=== PATIENT | male | born 1955 | race Caucasian/White ===

== ENCOUNTER 2017-07-18 20:47 | Emergency (ER) | payer MEDICARE, OTHER ==
[~2017-07-18] VITALS: Ht 177.8 cm; Wt 88.5 kg
[2017-07-18] MEDS ORDERED: SODIUM CHLORIDE 0.9% 2,000 ML IV ONE (22:15)
[2017-07-18 22:30] LABS: Basophils # (auto) 0 uL; Basophils % (auto) 0.3 % (0.0-2.0); Eosinophils # (auto) 0 uL; Eosinophils % (auto) 0.2 % (0.0-7.0); Hematocrit 36.1 % (41.0-53.0); Hemoglobin 11.8 g/dL (13.5-17.5); Lymphocytes # (auto) 1.2 uL; Lymphocytes % (auto) 9.5 % (10.0-50.0); Mean Corpuscular Hemoglobin 29.9 pg (28.0-32.0); Mean Corpuscular Hgb Conc. 32.8 g/dL (32.0-36.0); Mean Corpuscular Volume 91.2 fL (80.0-100.0); Monocytes # (auto) 0.5 uL; Monocytes % (auto) 3.8 % (0.0-12.0); Neutrophils # (auto) 10.5 uL; Neutrophils % (auto) 86.2 % (37.0-80.0); Platelet Count (auto) 247 10^3/uL (140-450); Red Blood Cells 3.96 10^6/uL (4.5-5.90); White Blood Cell 12.2 10^3/uL (4.4-10.8)
[2017-07-18 22:43] LABS: INR 1.1 (0.9-1.15)
[2017-07-18 22:49] LABS: Alanine Aminotransferase 23 U/L (16-61); Albumin 3.7 g/dL (3.4-5.0); Alkaline Phosphatase 62 U/L (45-117); Anion Gap 9 (5-15); Aspartate Aminotransferase 23 U/L (15-37); BUN/Creatinine Ratio 31.3; Bilirubin, Total 0.3 mg/dL (0.2-1.0); Blood Urea Nitrogen 46 mg/dL (7-18); Calcium 8.7 mg/dL (8.5-10.1); Carbon Dioxide 23 mmol/L (21-32); Chloride 109 mmol/L (98-107); GFR African American 62 mL/min; GFR Non-African American 52 mL/min; Glucose 227 mg/dL (74-106); Potassium 4.5 mmol/L (3.5-5.1); Sodium 141 mmol/L (136-145); Total Protein 6.8 g/dL (6.4-8.2)
[2017-07-18 23:17] LABS: Urine Bacteria NONE SEEN /hpf (None Seen); Urine Blood Negative /uL (Negative); Urine Specific Gravity 1.019 (1.001-1.035); Urine WBC 1 /hpf (0 - 3)
[2017-07-18 23:33] LABS: Alcohol, Urine < 3.0 mg/dL (0-5); Amphetamine Screen, Urine NEGATIVE (NEGATIVE); Barbiturate Scree,Urine NEGATIVE (NEGATIVE); Benzodiazephine Screen, Urine NEGATIVE (NEGATIVE); Cannabinoid Screen, Urine POSITIVE (NEGATIVE); Cocaine Screen, Urine NEGATIVE (NEGATIVE); Opiate Scree,Urine NEGATIVE (NEGATIVE); Phencyclidine Screen, Urine NEGATIVE (NEGATIVE)
[2017-07-19] MEDS ORDERED: cloNIDine HCL 0.1 MG TAB PO ONE (08:15)
[2017-07-19 09:50] VITALS: BP 107/85
== END 2017-07-19 09:50 | disposition home or self-care (01) ==
LOC: EDBD 20:47 → ER 20:48
DX: E86.0 Dehydration (principal); R42 Dizziness and giddiness; R41.82 Altered mental status, unspecified; E78.5 Hyperlipidemia, unspecified; I10 Essential (primary) hypertension; E11.65 Type 2 diabetes mellitus with hyperglycemia
CPT/HCPCS: 36415; 70450; 71045; 72131; 80053; 80307; 81001; 84484; 85025; 85610; 93005; 96360; 99285; J7030

== ENCOUNTER 2017-10-19 12:13 | Inpatient (IN) | payer MEDICARE, OTHER ==
[~2017-10-19] VITALS: Ht 180.3 cm; Wt 87.6 kg
[2017-10-19 13:21] LABS: Eosinophils # (auto) 0.1 uL; Mean Corpuscular Volume 90.7 fL (80.0-100.0); Monocytes # (auto) 0.5 uL
[2017-10-19 13:23] LABS: Basophils # (auto) 0 uL; Basophils % (auto) 0.7 % (0.0-2.0); Hematocrit 35.2 % (41.0-53.0); Hemoglobin 11.9 g/dL (13.5-17.5); Lymphocytes # (auto) 1.5 uL; Lymphocytes % (auto) 20.1 % (10.0-50.0); Mean Corpuscular Hemoglobin 30.5 pg (28.0-32.0); Mean Corpuscular Hgb Conc. 33.7 g/dL (32.0-36.0); Monocytes % (auto) 6.3 % (0.0-12.0); Neutrophils # (auto) 5.3 uL; Neutrophils % (auto) 71.9 % (37.0-80.0); Platelet Count (auto) 544 10^3/uL (140-450); Red Blood Cells 3.88 10^6/uL (4.5-5.90); Red Cell Distribution Width 14.2 % (11.8-14.3); White Blood Cell 7.3 10^3/uL (4.4-10.8)
[2017-10-19 13:50] LABS: Albumin 3.1 g/dL (3.4-5.0); BUN/Creatinine Ratio 27.6; Bilirubin, Total 0.2 mg/dL (0.2-1.0); Calcium 9.4 mg/dL (8.5-10.1); Potassium 4.6 mmol/L (3.5-5.1); Total Protein 7.9 g/dL (6.4-8.2)
[2017-10-19] MEDS ORDERED: SODIUM CHLORIDE 0.9% 1,000 ML IV ONE (16:18)
[2017-10-19] MEDS ORDERED: VANCOMYCIN 1GM/250ML 250 ML IV ONE (16:30)
[2017-10-19] MEDS ORDERED: NITROGLYCERIN 0.4 MG SL TAB SL PRN (17:00)
[2017-10-19] MEDS ORDERED: PROMETHAZINE HCL 25 MG/ML 1ML IV PRN (17:00)
[2017-10-19] MEDS ORDERED: TEMAZEPAM 15 MG CAP PO PRN (17:00)
[2017-10-19] MEDS ORDERED: DEXTROSE (50%) 50ML SYRG IV PRN (17:00)
[2017-10-19] MEDS ORDERED: VANCOMYCIN PER PHARMACY 0 MG IV SCH (17:00)
[2017-10-19] MEDS ORDERED: LORazepam 0.5 MG TAB PO PRN (17:00)
[2017-10-19] MEDS ORDERED: MORPHINE SULF INJ 2 MG/ML SYRINGE 1ML IV PRN (17:00)
[2017-10-19 17:32] LABS: INR 1.05 (0.9-1.15); Partial Thromboplastin Time 28.6 sec (23.78-33.04); Prothrombin Time 11.2 sec (9.27-12.13)
[2017-10-19] MEDS: SODIUM CHLORIDE 0.9% 1,000 ML IV SCH ×2 (17:48→20:20)
[2017-10-19 20:25] LABS: Basophils # (auto) 0.1 uL; Eosinophils # (auto) 0.1 uL; Neutrophils # (auto) 5.8 uL; White Blood Cell 8.5 10^3/uL (4.4-10.8)
[2017-10-19] MEDS: InsuLIN REG 1unit/0.01ml Soln (100units/ml) SC SCH (20:25)
[2017-10-19] MEDS: ACCU-CHEK COMFORT CURVE STRIP VI SCH (20:25)
[2017-10-19 20:27] LABS: Basophils % (auto) 0.6 % (0.0-2.0); Eosinophils % (auto) 1.3 % (0.0-7.0); Hematocrit 34.6 % (41.0-53.0); Hemoglobin 11.4 g/dL (13.5-17.5); Mean Corpuscular Hemoglobin 31.1 pg (28.0-32.0); Mean Corpuscular Hgb Conc. 32.8 g/dL (32.0-36.0); Mean Corpuscular Volume 94.7 fL (80.0-100.0); Monocytes # (auto) 0.6 uL; Monocytes % (auto) 6.5 % (0.0-12.0); Neutrophils % (auto) 68.6 % (37.0-80.0); Platelet Count (auto) 446 10^3/uL (140-450); Red Blood Cells 3.65 10^6/uL (4.5-5.90); Red Cell Distribution Width 14.2 % (11.8-14.3)
[2017-10-19] MEDS: MORPHINE SULF INJ 2 MG/ML SYRINGE 1ML IV PRN (20:27)
[2017-10-19 22:19] LABS: Urine Bacteria FEW /hpf (None Seen); Urine Blood Negative /uL (Negative); Urine Mucus FEW (None Seen); Urine Specific Gravity 1.023 (1.001-1.035); Urine WBC 16 /hpf (0 - 3)
[2017-10-20] VITALS (7 sets, daily range): BP systolic 116–140; BP diastolic 68–83
[2017-10-20] MEDS: InsuLIN REG 1unit/0.01ml Soln (100units/ml) SC SCH ×6 (01:42→20:05)
[2017-10-20] MEDS: ACCU-CHEK COMFORT CURVE STRIP VI SCH ×6 (01:42→20:05)
[2017-10-20] MEDS: traMADol HCL 50 MG TAB PO PRN (04:22)
[2017-10-20] MEDS ORDERED: CHOLCAP4 PO (05:01)
[2017-10-20] MEDS ORDERED: LOSA100T27 PO (05:01)
[2017-10-20] MEDS ORDERED: FLUO20CA19 PO (05:01)
[2017-10-20] MEDS ORDERED: INSU1INJ19 SC (05:01)
[2017-10-20] MEDS ORDERED: METF-372 PO (05:01)
[2017-10-20] MEDS ORDERED: GABA-339 PO (05:01)
[2017-10-20] MEDS ORDERED: HCTZ25T PO (05:01)
[2017-10-20] MEDS ORDERED: SIMV10TA84 PO (05:01)
[2017-10-20] MEDS ORDERED: ASPI81CH43 PO (05:01)
[2017-10-20 05:17] LABS: Basophils # (auto) 0.1 uL; Eosinophils # (auto) 0.1 uL; Eosinophils % (auto) 1.8 % (0.0-7.0); Hemoglobin 10.6 g/dL (13.5-17.5); Lymphocytes # (auto) 2.1 uL; Mean Corpuscular Hemoglobin 29.3 pg (28.0-32.0); Monocytes # (auto) 0.5 uL; Neutrophils # (auto) 4.5 uL; Red Blood Cells 3.62 10^6/uL (4.5-5.90); White Blood Cell 7.3 10^3/uL (4.4-10.8)
[2017-10-20 05:20] LABS: Basophils % (auto) 0.7 % (0.0-2.0); Hematocrit 32.6 % (41.0-53.0); Lymphocytes % (auto) 28.3 % (10.0-50.0); Mean Corpuscular Hgb Conc. 32.6 g/dL (32.0-36.0); Mean Corpuscular Volume 89.9 fL (80.0-100.0); Monocytes % (auto) 7.4 % (0.0-12.0); Neutrophils % (auto) 61.8 % (37.0-80.0); Platelet Count (auto) 428 10^3/uL (140-450); Red Cell Distribution Width 14.1 % (11.8-14.3)
[2017-10-20 05:34] LABS: Albumin 2.8 g/dL (3.4-5.0); BUN/Creatinine Ratio 28.7; Bilirubin, Total 0.2 mg/dL (0.2-1.0); Calcium 9.1 mg/dL (8.5-10.1); Total Protein 6.8 g/dL (6.4-8.2)
[2017-10-20] MEDS: VANCOMYCIN 1,250 MG in D5W 5% 250 ML IV SCH ×2 (05:51→18:21)
[2017-10-20] MEDS: MORPHINE SULF INJ 2 MG/ML SYRINGE 1ML IV PRN ×3 (06:28→20:05)
[2017-10-20] MEDS: cefTRIAXone 1GM/10ml IVPUSH 10 ML IV SCH (08:57)
[2017-10-20] MEDS: PANTOPRAZOLE 40 MG TAB PO SCH (09:11)
[2017-10-20] MEDS: SODIUM CHLORIDE 0.9% 1,000 ML IV SCH ×2 (13:48→21:31)
[2017-10-20] MEDS: HCTZ 25 MG TAB PO SCH (14:17)
[2017-10-20] MEDS: LOSARTAN POTASSIUM 50 MG TAB PO SCH (14:17)
[2017-10-20] MEDS: GABAPENTIN 300 MG CAP PO SCH ×2 (14:17→21:31)
[2017-10-21] MEDS: SODIUM CHLORIDE 0.9% 1,000 ML IV SCH ×3 (00:30→18:10)
[2017-10-21] MEDS: ACCU-CHEK COMFORT CURVE STRIP VI SCH ×6 (00:32→20:12)
[2017-10-21] MEDS: InsuLIN REG 1unit/0.01ml Soln (100units/ml) SC SCH ×6 (00:32→20:12)
[2017-10-21 05:00] VITALS: BP 120/77
[2017-10-21 05:17] LABS: Basophils # (auto) 0.1 uL; Basophils % (auto) 0.8 % (0.0-2.0); Eosinophils # (auto) 0.2 uL; Eosinophils % (auto) 2.4 % (0.0-7.0); Hematocrit 32.9 % (41.0-53.0); Hemoglobin 11.1 g/dL (13.5-17.5); Lymphocytes # (auto) 2.1 uL; Lymphocytes % (auto) 32.7 % (10.0-50.0); Mean Corpuscular Hemoglobin 30.3 pg (28.0-32.0); Mean Corpuscular Hgb Conc. 33.7 g/dL (32.0-36.0); Mean Corpuscular Volume 89.9 fL (80.0-100.0); Monocytes # (auto) 0.5 uL; Monocytes % (auto) 8.4 % (0.0-12.0); Neutrophils # (auto) 3.5 uL; Neutrophils % (auto) 55.7 % (37.0-80.0); Platelet Count (auto) 401 10^3/uL (140-450); Red Blood Cells 3.66 10^6/uL (4.5-5.90); Red Cell Distribution Width 13.7 % (11.8-14.3); White Blood Cell 6.3 10^3/uL (4.4-10.8)
[2017-10-21 05:36] LABS: Albumin 2.7 g/dL (3.4-5.0); Calcium 8.8 mg/dL (8.5-10.1); Potassium 4.3 mmol/L (3.5-5.1)
[2017-10-21 05:38] LABS: BUN/Creatinine Ratio 22.6
[2017-10-21 05:41] LABS: Bilirubin, Total 0.3 mg/dL (0.2-1.0); Total Protein 6.7 g/dL (6.4-8.2)
[2017-10-21] MEDS: GABAPENTIN 300 MG CAP PO SCH ×3 (06:24→21:31)
[2017-10-21] MEDS: VANCOMYCIN 1,250 MG in D5W 5% 250 ML IV SCH ×2 (06:24→18:09)
[2017-10-21 07:57] VITALS: BP 123/74
[2017-10-21] MEDS: cefTRIAXone 1GM/10ml IVPUSH 10 ML IV SCH (08:51)
[2017-10-21] MEDS: LOSARTAN POTASSIUM 50 MG TAB PO SCH (08:52)
[2017-10-21] MEDS: PANTOPRAZOLE 40 MG TAB PO SCH (08:53)
[2017-10-21] MEDS: HCTZ 25 MG TAB PO SCH (08:53)
[2017-10-21] MEDS: MORPHINE SULF INJ 2 MG/ML SYRINGE 1ML IV PRN ×3 (09:05→20:12)
[2017-10-21 12:38] VITALS: BP 125/76
[2017-10-21] MEDS: MULTIPLE VITAMIN TAB PO SCH (18:09)
[2017-10-21] MEDS: ASCORBIC ACID 500 MG TAB PO SCH (21:31)
[2017-10-21 22:00] VITALS: BP_SYST 127; BP_SYST 164; BP_DIAS 77; BP_DIAS 95
[2017-10-22] MEDS: ACCU-CHEK COMFORT CURVE STRIP VI SCH ×6 (04:00→20:36)
[2017-10-22] MEDS: InsuLIN REG 1unit/0.01ml Soln (100units/ml) SC SCH ×7 (04:00→20:37)
[2017-10-22] MEDS: MORPHINE SULF INJ 2 MG/ML SYRINGE 1ML IV PRN ×3 (04:15→20:59)
[2017-10-22] MEDS: SODIUM CHLORIDE 0.9% 1,000 ML IV SCH ×3 (04:33→20:59)
[2017-10-22 05:15] VITALS: BP 123/70
[2017-10-22 05:50] LABS: Basophils # (auto) 0.1 uL; Basophils % (auto) 0.8 % (0.0-2.0); Eosinophils # (auto) 0.1 uL; Eosinophils % (auto) 1.6 % (0.0-7.0); Hematocrit 31.6 % (41.0-53.0); Hemoglobin 10.6 g/dL (13.5-17.5); Lymphocytes % (auto) 24.6 % (10.0-50.0); Mean Corpuscular Hemoglobin 30.1 pg (28.0-32.0); Mean Corpuscular Hgb Conc. 33.4 g/dL (32.0-36.0); Mean Corpuscular Volume 89.9 fL (80.0-100.0); Monocytes # (auto) 0.7 uL; Monocytes % (auto) 8.4 % (0.0-12.0); Neutrophils # (auto) 5.3 uL; Neutrophils % (auto) 64.6 % (37.0-80.0); Platelet Count (auto) 399 10^3/uL (140-450); Red Blood Cells 3.51 10^6/uL (4.5-5.90); Red Cell Distribution Width 13.8 % (11.8-14.3); White Blood Cell 8.2 10^3/uL (4.4-10.8)
[2017-10-22] MEDS: GABAPENTIN 300 MG CAP PO SCH ×3 (06:02→21:58)
[2017-10-22] MEDS: VANCOMYCIN 1,250 MG in D5W 5% 250 ML IV SCH ×2 (06:02→18:48)
[2017-10-22 06:06] LABS: Calcium 8.4 mg/dL (8.5-10.1); Potassium 4.3 mmol/L (3.5-5.1)
[2017-10-22 09:00] VITALS: BP 113/50
[2017-10-22] MEDS: cefTRIAXone 1GM/10ml IVPUSH 10 ML IV SCH (09:17)
[2017-10-22] MEDS: PANTOPRAZOLE 40 MG TAB PO SCH (09:18)
[2017-10-22] MEDS: HCTZ 25 MG TAB PO SCH (09:18)
[2017-10-22] MEDS: LOSARTAN POTASSIUM 50 MG TAB PO SCH (10:00)
[2017-10-22] MEDS: MULTIPLE VITAMIN TAB PO SCH (12:20)
[2017-10-22] MEDS: ASCORBIC ACID 500 MG TAB PO SCH ×2 (12:20→21:58)
[2017-10-22 13:00] VITALS: BP 116/66
[2017-10-22 17:00] VITALS: BP 110/64
[2017-10-22 22:00] VITALS: BP 146/73
[2017-10-23] MEDS: ACCU-CHEK COMFORT CURVE STRIP VI SCH ×6 (00:13→21:01)
[2017-10-23] MEDS: SODIUM CHLORIDE 0.9% 1,000 ML IV SCH ×3 (00:13→21:01)
[2017-10-23] MEDS: InsuLIN REG 1unit/0.01ml Soln (100units/ml) SC SCH ×6 (04:00→21:02)
[2017-10-23 05:00] VITALS: BP 113/71
[2017-10-23] MEDS: MORPHINE SULF INJ 2 MG/ML SYRINGE 1ML IV PRN ×3 (05:05→21:00)
[2017-10-23] MEDS: GABAPENTIN 300 MG CAP PO SCH ×3 (06:00→21:01)
[2017-10-23 06:05] LABS: Neutrophils # (auto) 4.4 uL
[2017-10-23 06:08] LABS: INR 1.1 (0.9-1.15); Partial Thromboplastin Time 28.7 sec (23.78-33.04); Prothrombin Time 11.7 sec (9.27-12.13)
[2017-10-23 06:11] LABS: Basophils # (auto) 0 uL; Basophils % (auto) 0.6 % (0.0-2.0); Eosinophils # (auto) 0.2 uL; Eosinophils % (auto) 2.3 % (0.0-7.0); Hematocrit 36.5 % (41.0-53.0); Hemoglobin 12.3 g/dL (13.5-17.5); Lymphocytes # (auto) 2.3 uL; Lymphocytes % (auto) 30.3 % (10.0-50.0); Mean Corpuscular Hemoglobin 30.4 pg (28.0-32.0); Mean Corpuscular Hgb Conc. 33.6 g/dL (32.0-36.0); Mean Corpuscular Volume 90.4 fL (80.0-100.0); Monocytes # (auto) 0.6 uL; Monocytes % (auto) 7.5 % (0.0-12.0); Neutrophils % (auto) 59.3 % (37.0-80.0); Nucleated Red Blood Cells % 0.1 %; Platelet Count (auto) 488 10^3/uL (140-450); Red Blood Cells 4.04 10^6/uL (4.5-5.90); White Blood Cell 7.4 10^3/uL (4.4-10.8)
[2017-10-23] MEDS: VANCOMYCIN 1,250 MG in D5W 5% 250 ML IV SCH ×2 (06:16→17:55)
[2017-10-23 06:18] LABS: BUN/Creatinine Ratio 20.7; Calcium 8.9 mg/dL (8.5-10.1); Potassium 3.9 mmol/L (3.5-5.1)
[2017-10-23 08:51] VITALS: BP 125/71
[2017-10-23] MEDS ORDERED: LIDOCAINE 2% (LOCAL ANESTH.) PF 5ml SDV ONE ×2 (09:01→09:26)
[2017-10-23] MEDS ORDERED: IODIXANOL 320MG/ML 100ML BTL IV ONE (09:02)
[2017-10-23] MEDS ORDERED: MIDAZOLAM HCL 1MG/1ML-2 ML VIAL ONE (09:07)
[2017-10-23] MEDS ORDERED: SODIUM CHL 0.9% 50 ML ONE (09:07)
[2017-10-23] MEDS ORDERED: ANGIOMAX 250 MG VIAL IV ONE (09:07)
[2017-10-23] MEDS ORDERED: fentaNYL CITRATE 100 MCG/2 ML VL ONE (09:07)
[2017-10-23] MEDS ORDERED: VERAPAMIL 2.5MG/ML INJ 2ML VIAL IV ONE (09:13)
[2017-10-23 13:00] VITALS: BP 125/73
[2017-10-23] MEDS ORDERED: LIDOCAINE 1% (LOCAL ANESTH.) PF 5ml SDV ID ONE (14:15)
[2017-10-23] MEDS: MULTIPLE VITAMIN TAB PO SCH (14:27)
[2017-10-23] MEDS: cefTRIAXone 1GM/10ml IVPUSH 10 ML IV SCH (14:27)
[2017-10-23] MEDS: PANTOPRAZOLE 40 MG TAB PO SCH (14:27)
[2017-10-23] MEDS: ASCORBIC ACID 500 MG TAB PO SCH ×2 (14:27→21:01)
[2017-10-23] MEDS: HCTZ 25 MG TAB PO SCH (14:29)
[2017-10-23] MEDS: LOSARTAN POTASSIUM 50 MG TAB PO SCH (14:30)
[2017-10-23 17:00] VITALS: BP 99/52
[2017-10-23] MEDS: traMADol HCL 50 MG TAB PO PRN (17:55)
[2017-10-23] MEDS: SODIUM CHLOR 0.9% PF (SALINE LOCK) 10ML VIAL/SYR IV SCH (21:01)
[2017-10-23] MEDS: PRAVASTATIN SODIUM 20 MG TAB PO SCH (21:02)
[2017-10-23 22:00] VITALS: BP 137/74
[2017-10-24] MEDS: ACCU-CHEK COMFORT CURVE STRIP VI SCH ×6 (01:00→20:00)
[2017-10-24] MEDS: InsuLIN REG 1unit/0.01ml Soln (100units/ml) SC SCH ×6 (01:00→21:32)
[2017-10-24 05:00] VITALS: BP 120/76
[2017-10-24] MEDS: GABAPENTIN 300 MG CAP PO SCH ×3 (05:44→22:01)
[2017-10-24] MEDS: SODIUM CHLORIDE 0.9% 1,000 ML IV SCH ×2 (05:44→18:21)
[2017-10-24] MEDS: VANCOMYCIN 1,250 MG in D5W 5% 250 ML IV SCH ×2 (05:44→18:21)
[2017-10-24] MEDS: traMADol HCL 50 MG TAB PO PRN (05:45)
[2017-10-24 07:55] LABS: Basophils # (auto) 0.1 uL; Basophils % (auto) 0.8 % (0.0-2.0); Eosinophils # (auto) 0.2 uL; Eosinophils % (auto) 2.2 % (0.0-7.0); Hematocrit 33.6 % (41.0-53.0); Hemoglobin 11.1 g/dL (13.5-17.5); Lymphocytes % (auto) 26.3 % (10.0-50.0); Mean Corpuscular Hemoglobin 29.6 pg (28.0-32.0); Mean Corpuscular Volume 89.8 fL (80.0-100.0); Monocytes # (auto) 0.6 uL; Monocytes % (auto) 7.9 % (0.0-12.0); Neutrophils # (auto) 4.7 uL; Neutrophils % (auto) 62.8 % (37.0-80.0); Nucleated Red Blood Cells % 0.1 %; Platelet Count (auto) 389 10^3/uL (140-450); Red Blood Cells 3.74 10^6/uL (4.5-5.90); Red Cell Distribution Width 13.8 % (11.8-14.3); White Blood Cell 7.5 10^3/uL (4.4-10.8)
[2017-10-24 08:00] VITALS: BP 137/75
[2017-10-24 08:02] LABS: BUN/Creatinine Ratio 17.9; Calcium 8.8 mg/dL (8.5-10.1); Potassium 4.1 mmol/L (3.5-5.1)
[2017-10-24] MEDS: ASCORBIC ACID 500 MG TAB PO SCH ×2 (10:00→22:01)
[2017-10-24] MEDS: MULTIPLE VITAMIN TAB PO SCH (10:00)
[2017-10-24] MEDS: PANTOPRAZOLE 40 MG TAB PO SCH (10:00)
[2017-10-24] MEDS: HCTZ 25 MG TAB PO SCH (10:22)
[2017-10-24] MEDS: LOSARTAN POTASSIUM 50 MG TAB PO SCH (10:23)
[2017-10-24 12:00] VITALS: BP 118/74
[2017-10-24] MEDS ORDERED: IODIXANOL 320MG/ML 100ML BTL IV ONE (13:14)
[2017-10-24] MEDS ORDERED: LIDOCAINE 2% (LOCAL ANESTH.) PF 5ml SDV ONE (13:14)
[2017-10-24] MEDS ORDERED: fentaNYL CITRATE 100 MCG/2 ML VL ONE (14:29)
[2017-10-24] MEDS ORDERED: ANGIOMAX 250 MG VIAL IV ONE (14:29)
[2017-10-24] MEDS ORDERED: MIDAZOLAM HCL 1MG/1ML-2 ML VIAL ONE (14:30)
[2017-10-24] MEDS ORDERED: SODIUM CHL 0.9% 50 ML ONE (14:30)
[2017-10-24 17:00] VITALS: BP 140/87
[2017-10-24] MEDS: cefTRIAXone 1GM/10ml IVPUSH 10 ML IV SCH (18:19)
[2017-10-24] MEDS: SODIUM CHLOR 0.9% PF (SALINE LOCK) 10ML VIAL/SYR IV SCH ×2 (18:20→21:33)
[2017-10-24] MEDS: ACETAMINOPHEN 500 MG TAB PO PRN (18:22)
[2017-10-24 21:59] VITALS: BP 122/60
[2017-10-24] MEDS: MORPHINE SULF INJ 2 MG/ML SYRINGE 1ML IV PRN (22:00)
[2017-10-24] MEDS: PRAVASTATIN SODIUM 20 MG TAB PO SCH (22:01)
[2017-10-25] MEDS: SODIUM CHLORIDE 0.9% 1,000 ML IV SCH ×2 (03:52→13:04)
[2017-10-25] MEDS: ACCU-CHEK COMFORT CURVE STRIP VI SCH ×5 (04:29→16:00)
[2017-10-25] MEDS: InsuLIN REG 1unit/0.01ml Soln (100units/ml) SC SCH ×5 (04:29→16:00)
[2017-10-25 05:30] VITALS: BP 112/74
[2017-10-25 05:39] LABS: Basophils # (auto) 0 uL; Basophils % (auto) 0.6 % (0.0-2.0); Eosinophils # (auto) 0.2 uL; Eosinophils % (auto) 2.5 % (0.0-7.0); Hematocrit 31.8 % (41.0-53.0); Hemoglobin 10.7 g/dL (13.5-17.5); Lymphocytes # (auto) 1.9 uL; Lymphocytes % (auto) 28.2 % (10.0-50.0); Mean Corpuscular Hemoglobin 30.4 pg (28.0-32.0); Mean Corpuscular Hgb Conc. 33.7 g/dL (32.0-36.0); Monocytes # (auto) 0.5 uL; Monocytes % (auto) 7.9 % (0.0-12.0); Neutrophils # (auto) 4.1 uL; Neutrophils % (auto) 60.8 % (37.0-80.0); Platelet Count (auto) 363 10^3/uL (140-450); Red Blood Cells 3.53 10^6/uL (4.5-5.90); Red Cell Distribution Width 13.9 % (11.8-14.3); White Blood Cell 6.7 10^3/uL (4.4-10.8)
[2017-10-25] MEDS: VANCOMYCIN 1,250 MG in D5W 5% 250 ML IV SCH ×2 (05:47→18:00)
[2017-10-25] MEDS: GABAPENTIN 300 MG CAP PO SCH ×2 (05:48→14:00)
[2017-10-25 05:58] LABS: BUN/Creatinine Ratio 24.4; Calcium 8.4 mg/dL (8.5-10.1)
[2017-10-25 08:39] VITALS: BP 142/76
[2017-10-25] MEDS: ACETAMINOPHEN 500 MG TAB PO PRN (08:49)
[2017-10-25] MEDS: ASCORBIC ACID 500 MG TAB PO SCH (10:09)
[2017-10-25] MEDS: HCTZ 25 MG TAB PO SCH (10:09)
[2017-10-25] MEDS: PANTOPRAZOLE 40 MG TAB PO SCH (10:09)
[2017-10-25] MEDS: cefTRIAXone 1GM/10ml IVPUSH 10 ML IV SCH (10:09)
[2017-10-25] MEDS: MULTIPLE VITAMIN TAB PO SCH (10:09)
[2017-10-25] MEDS: LOSARTAN POTASSIUM 50 MG TAB PO SCH (10:10)
[2017-10-25] MEDS: SODIUM CHLOR 0.9% PF (SALINE LOCK) 10ML VIAL/SYR IV SCH (10:10)
[2017-10-25] MEDS ORDERED: LEVOFLOXACIN 500MG 100 ML IV ONE (12:45)
[2017-10-25 13:00] VITALS: BP 142/76
[2017-10-25 16:39] VITALS: BP 150/88
[2017-10-25 17:34] VITALS: BP 142/76
[2017-10-25 18:00] VITALS: BP 120/69
== END 2017-10-25 18:38 | disposition home health service (06) | DRG 300 ==
LOC: ER 12:19 → TELE 12:20 → TELE-WESTW 10-20 03:21
PROVIDERS: ADMIT Internal Medicine; ATTEND Family Medicine
PROC: B41G1ZZ Fluoroscopy of Left Lower Extremity Arteries using Low Osmolar Contrast (ICD-10-PCS; principal; 2017-10-23)
PROC: B41F1ZZ Fluoroscopy of Right Lower Extremity Arteries using Low Osmolar Contrast (ICD-10-PCS; 2017-10-23)
PROC: 04JY3ZZ Inspection of Lower Artery, Percutaneous Approach (ICD-10-PCS; 2017-10-23)
PROC: 02HV33Z Insertion of Infusion Device into Superior Vena Cava, Percutaneous Approach (ICD-10-PCS; 2017-10-23)
PROC: 04JY3ZZ Inspection of Lower Artery, Percutaneous Approach (ICD-10-PCS; 2017-10-24)
DX: I70.201 Unspecified atherosclerosis of native arteries of extremities, right leg (principal); E44.1 Mild protein-calorie malnutrition; N39.0 Urinary tract infection, site not specified; M86.8X7 Other osteomyelitis, ankle and foot; E11.621 Type 2 diabetes mellitus with foot ulcer; I10 Essential (primary) hypertension; L08.9 Local infection of the skin and subcutaneous tissue, unspecified; E11.69 Type 2 diabetes mellitus with other specified complication; E78.00 Pure hypercholesterolemia, unspecified; D64.9 Anemia, unspecified; D47.3 Essential (hemorrhagic) thrombocythemia; E11.65 Type 2 diabetes mellitus with hyperglycemia; E66.3 Overweight; E78.5 Hyperlipidemia, unspecified; M83.9 Adult osteomalacia, unspecified; Z79.4 Long term (current) use of insulin; Z80.8 Family history of malignant neoplasm of other organs or systems; Z68.26 Body mass index [BMI] 26.0-26.9, adult; Z91.19 Patient's noncompliance with other medical treatment and regimen
CPT/HCPCS: 36140; 36415; 71045; 71046; 73630; 75716; 80048; 80053; 80202; 81001; 82962; 83036; 83735; 83880; 84443; 85025; 85610; 85652; 85730; 87040; 87077; 87081; 87186; 87205; 93005; 93306; 93926; 94761; 96365; 96375; 99152; 99153; C1769; J1815; J1956; J2250; J7060; Q9967

== ENCOUNTER → 2017-11-10 | Outpatient (CLI) | payer MEDICARE, OTHER ==
[~2017-11-10] MED LIST: ASPI81CH43 PO; CHOLCAP4 PO; CLOP75TA41 PO; FLUO20CA19 PO; GABA-339 PO; HCTZ25T PO; HYDR-531 PO; INSU1INJ19 SC; IOHEXOL 350 MG/ML 100ML IJ ONE; LOSA100T27 PO; METF-372 PO; SIMV10TA84 PO; SODIUM CHLORIDE 0.9% 250 ML IV SCH
[2017-11-10 08:49] VITALS: BP 137/79
[2017-11-10 09:48] VITALS: BP 133/73
== END | disposition home or self-care (01) ==
LOC: Rad HDHVI 08:38
PROVIDERS: ATTEND Internal Medicine Cardiovascular Disease
DX: I73.9 Peripheral vascular disease, unspecified (principal); S81.801A Unspecified open wound, right lower leg, initial encounter; I10 Essential (primary) hypertension; E11.65 Type 2 diabetes mellitus with hyperglycemia; E78.5 Hyperlipidemia, unspecified; M86.9 Osteomyelitis, unspecified; E78.00 Pure hypercholesterolemia, unspecified; Z79.4 Long term (current) use of insulin; Z79.82 Long term (current) use of aspirin; Z79.1 Long term (current) use of non-steroidal anti-inflammatories (NSAID); Z79.84 Long term (current) use of oral hypoglycemic drugs; Z68.26 Body mass index [BMI] 26.0-26.9, adult; X58.XXXA Exposure to other specified factors, initial encounter; Y93.89 Activity, other specified; Y92.89 Other specified places as the place of occurrence of the external cause
CPT/HCPCS: 75635; 82565; 82962; 96360; G0463; J1642; J7050; Q9967

== ENCOUNTER → 2018-03-23 | Outpatient (CLI) | payer MEDICARE, MEDICAID ==
[~2018-03-23] MED LIST changes: -IOHEXOL 350 MG/ML 100ML IJ ONE; +LOSA-49 PO; -LOSA100T27 PO; +SIMV-8 PO; -SODIUM CHLORIDE 0.9% 250 ML IV SCH
[2018-03-23 10:25] VITALS: BP 165/92
[2018-03-23 11:08] VITALS: BP 152/84
[2018-03-23 12:22] LABS: Basophils # (auto) 0.1 uL; Basophils % (auto) 0.8 % (0.0-2.0); Eosinophils # (auto) 0.2 uL; Eosinophils % (auto) 2.7 % (0.0-7.0); Hemoglobin 13.2 g/dL (13.5-17.5); Lymphocytes # (auto) 2.2 uL; Lymphocytes % (auto) 27.1 % (10.0-50.0); Mean Corpuscular Hemoglobin 29.6 pg (28.0-32.0); Mean Corpuscular Hgb Conc. 33.1 g/dL (32.0-36.0); Mean Corpuscular Volume 89.4 fL (80.0-100.0); Monocytes # (auto) 0.6 uL; Neutrophils # (auto) 5.1 uL; Neutrophils % (auto) 62.4 % (37.0-80.0); Nucleated Red Blood Cells % 0.2 %; Platelet Count (auto) 314 10^3/uL (140-450); Red Blood Cells 4.48 10^6/uL (4.5-5.90); Red Cell Distribution Width 14.1 % (11.8-14.3); White Blood Cell 8.2 10^3/uL (4.4-10.8)
[2018-03-23 12:36] LABS: Potassium 4.6 mmol/L (3.5-5.1)
[2018-03-23 12:37] LABS: Partial Thromboplastin Time 23.4 sec (23.78-33.04); Prothrombin Time 10.7 sec (9.27-12.13)
[2018-03-23 12:39] LABS: BUN/Creatinine Ratio 27.8; Calcium 9.5 mg/dL (8.5-10.1)
== END | disposition home or self-care (01) ==
LOC: Rad HDHVI 10:16
PROVIDERS: ATTEND Internal Medicine Cardiovascular Disease
DX: Z01.818 Encounter for other preprocedural examination (principal); I70.0 Atherosclerosis of aorta; D64.9 Anemia, unspecified; R79.1 Abnormal coagulation profile; I10 Essential (primary) hypertension
CPT/HCPCS: 36415; 71046; 80048; 85025; 85610; 85730; 93005; G0463

== ENCOUNTER → 2018-03-24 | Outpatient (CLI) | payer MEDICARE, MEDICAID ==
[~2018-03-24] VITALS: Ht 180.3 cm; Wt 92.5 kg
[~2018-03-24] MED LIST changes: +ADENOSINE 78 MG in GIVE UN-DILUTED 0 ML IV ONE; +ADENOSINE 90 MG/30 ML INJ IV ONE; -CHOLCAP4 PO; -HYDR-531 PO; -INSU1INJ19 SC; -SIMV10TA84 PO
== END | disposition home or self-care (01) ==
LOC: Rad HDHVI 14:21
PROVIDERS: ATTEND Internal Medicine Cardiovascular Disease
DX: I73.9 Peripheral vascular disease, unspecified (principal); E78.00 Pure hypercholesterolemia, unspecified; E11.9 Type 2 diabetes mellitus without complications; R06.01 Orthopnea; R07.89 Other chest pain
CPT/HCPCS: 78452; 93005; 96374; 96375; A9500; J0153

== ENCOUNTER 2018-03-26 09:04 | Day surgery (SDC) | payer MEDICARE, MEDICAID ==
[~2018-03-26] VITALS: Ht 180.3 cm; Wt 93.0 kg
[~2018-03-26 09:04] MED LIST changes: -ADENOSINE 78 MG in GIVE UN-DILUTED 0 ML IV ONE; -ADENOSINE 90 MG/30 ML INJ IV ONE
[2018-03-26] MEDS ORDERED: IOHEXOL 350 MG/ML 100ML IJ ONE (10:26)
[2018-03-26] MEDS ORDERED: LIDOCAINE 2%HCL (LOCAL ANESTH.) INJ 20ML MDV ONE (10:26)
[2018-03-26] MEDS ORDERED: fentaNYL CITRATE 100 MCG/2 ML VL ONE (10:35)
[2018-03-26] MEDS ORDERED: ANGIOMAX 250 MG VIAL IV ONE (10:35)
[2018-03-26] MEDS ORDERED: MIDAZOLAM HCL 1MG/1ML-2 ML VIAL ONE (10:36)
[2018-03-26] MEDS ORDERED: SODIUM CHL 0.9% 50 ML ONE (10:36)
== END 2018-03-26 14:20 | disposition home or self-care (01) ==
LOC: CATH 09:04
PROVIDERS: ATTEND Internal Medicine Cardiovascular Disease
DX: I70.201 Unspecified atherosclerosis of native arteries of extremities, right leg (principal); I10 Essential (primary) hypertension; E78.5 Hyperlipidemia, unspecified; E11.621 Type 2 diabetes mellitus with foot ulcer; I99.8 Other disorder of circulatory system; E11.51 Type 2 diabetes mellitus with diabetic peripheral angiopathy without gangrene; Q25.0 Patent ductus arteriosus; Z79.899 Other long term (current) drug therapy; Z79.82 Long term (current) use of aspirin; Z11.9 Encounter for screening for infectious and parasitic diseases, unspecified
CPT/HCPCS: 37224; 75716; 99152; 99153; A6257; C1760; C1769; C1887; C1894; J0583; J1644; J2250; J3010; J7030; Q9967

== ENCOUNTER 2018-07-19 10:05 | Inpatient (IN) | payer MEDICARE, OTHER, MEDICAID | END 2018-07-24 19:10 | disposition home health service (06) | LOC: WEST WING 07-22 21:56 → ER 10:05 → WEST WING 07-22 22:01 → TELE 14:04 → WEST WING 17:31 | PROC: 0Y6R0Z0 Detachment at Right 2nd Toe, Complete, Open Approach (ICD-10-PCS; principal; 2018-07-22 11:10) | DX: M86.9 Osteomyelitis, unspecified (principal); N17.9 Acute kidney failure, unspecified; L97.919 Non-pressure chronic ulcer of unspecified part of right lower leg with unspecified severity; L03.811 Cellulitis of head [any part, except face]; N18.3 Chronic kidney disease, stage 3 (moderate); I12.9 Hypertensive chronic kidney disease with stage 1 through stage 4 chronic kidney disease, or unspecified chronic kidney disease; E11.21 Type 2 diabetes mellitus with diabetic nephropathy; E11.51 Type 2 diabetes mellitus with diabetic peripheral angiopathy without gangrene; E11.65 Type 2 diabetes mellitus with hyperglycemia; E78.5 Hyperlipidemia, unspecified; E11.40 Type 2 diabetes mellitus with diabetic neuropathy, unspecified; E78.00 Pure hypercholesterolemia, unspecified; D64.9 Anemia, unspecified ==

== ENCOUNTER 2018-12-30 08:25 | Emergency (ER) | payer MEDICAID, MEDICARE, OTHER ==
[~2018-12-30] VITALS: Ht 177.8 cm; Wt 90.7 kg
[~2018-12-30 08:25] MED LIST changes: +LOSA-39 PO; -LOSA-49 PO
[2018-12-30 09:09] LABS: Albumin 3.8 g/dL (3.4-5.0); Calcium 9.3 mg/dL (8.5-10.1); Potassium 3.8 mmol/L (3.5-5.1)
[2018-12-30 09:11] LABS: BUN/Creatinine Ratio 14.7
[2018-12-30 09:12] LABS: Basophils # (auto) 0 uL; Basophils % (auto) 0.6 % (0.0-2.0); Eosinophils # (auto) 0.1 uL; Eosinophils % (auto) 1.7 % (0.0-7.0); Hemoglobin 14.5 g/dL (13.5-17.5); Lymphocytes # (auto) 1.8 uL; Lymphocytes % (auto) 26.7 % (10.0-50.0); Mean Corpuscular Hemoglobin 30.3 pg (28.0-32.0); Mean Corpuscular Hgb Conc. 33.8 g/dL (32.0-36.0); Mean Corpuscular Volume 89.5 fL (80.0-100.0); Monocytes # (auto) 0.5 uL; Neutrophils # (auto) 4.4 uL; Nucleated Red Blood Cells % 0.1 %; Platelet Count (auto) 348 10^3/uL (140-450); Red Blood Cells 4.81 10^6/uL (4.5-5.90); Red Cell Distribution Width 14.4 % (11.8-14.3); White Blood Cell 6.9 10^3/uL (4.4-10.8)
[2018-12-30 09:13] LABS: Bilirubin, Total 0.5 mg/dL (0.2-1.0); Total Protein 7.2 g/dL (6.4-8.2)
[2018-12-30 09:47] LABS: Urine Bacteria None Seen /hpf (None Seen)
[2018-12-30 10:27] LABS: Urine WBC 0-2 /hpf (0 - 3)
[2018-12-30 10:29] LABS: Urine Blood Negative /uL (Negative)
[2018-12-30 13:24] VITALS: BP 156/88
== END 2018-12-30 13:25 | disposition home or self-care (01) ==
LOC: EDBD 08:25 → ER 08:27
DX: H93.13 Tinnitus, bilateral (principal); E11.65 Type 2 diabetes mellitus with hyperglycemia; I10 Essential (primary) hypertension; R51 Headache; R42 Dizziness and giddiness; E78.5 Hyperlipidemia, unspecified
CPT/HCPCS: 36415; 70450; 71045; 80053; 81001; 85025; 93005

== ENCOUNTER 2020-01-24 13:07 | Inpatient (IN) | payer MEDICARE ==
[~2020-01-24] VITALS: Ht 180.3 cm; Wt 98.8 kg
[2020-01-24] MEDS ORDERED: SODIUM CHLORIDE 0.9% 500 ML IV ONE (13:30)
[2020-01-24 13:57] LABS: Basophils # (auto) 0 10 ^3/uL (0-0.2); Basophils % (auto) 0.5 % (0.0-2.0); Eosinophils # (auto) 0.2 10 ^3/uL (0-0.8); Eosinophils % (auto) 1.9 % (0.0-7.0); Hematocrit 42.4 % (41.0-53.0); Hemoglobin 14.1 g/dL (13.5-17.5); Lymphocytes # (auto) 1.6 10 ^3/uL (0.4-5.4); Mean Corpuscular Hemoglobin 30.6 pg (28.0-32.0); Mean Corpuscular Hgb Conc. 33.2 g/dL (32.0-36.0); Mean Corpuscular Volume 92.1 fL (80.0-100.0); Monocytes # (auto) 0.6 10 ^3/uL (0-1.3); Monocytes % (auto) 7.7 % (0.0-12.0); Neutrophils # (auto) 5.8 10 ^3/uL (1.6-8.6); Neutrophils % (auto) 70.9 % (37.0-80.0); Nucleated Red Blood Cells % 0.1 %; Platelet Count (auto) 361 10^3/uL (140-450); Red Cell Distribution Width 13.2 % (11.8-14.3); White Blood Cell 8.2 10^3/uL (4.4-10.8)
[2020-01-24 14:13] LABS: Albumin 3.6 g/dL (3.4-5.0); Calcium 9.5 mg/dL (8.5-10.1); Potassium 4.3 mmol/L (3.5-5.1)
[2020-01-24 14:17] LABS: BUN/Creatinine Ratio 21.6; Bilirubin, Total 0.4 mg/dL (0.2-1.0)
[2020-01-24] MEDS ORDERED: MORPHINE SULF INJ 2 MG/ML SYRINGE 1ML IV PRN ×2 (15:45→17:45)
[2020-01-24] MEDS ORDERED: NITROGLYCERIN 0.4 MG SL TAB SL PRN ×2 (15:45→17:45)
[2020-01-24] MEDS ORDERED: SIMV10TA84 PO (16:29)
[2020-01-24] MEDS ORDERED: BACL10TA PO (16:29)
[2020-01-24] MEDS ORDERED: FERR-20 PO (16:29)
[2020-01-24] MEDS ORDERED: CHOL20007 PO (16:29)
[2020-01-24] MEDS ORDERED: INSU1INJ19 SC (16:40)
[2020-01-24] MEDS ORDERED: BACLOFEN 10 MG TAB PO PRN (17:45)
[2020-01-24] MEDS ORDERED: DOCUSATE SOD 100 MG CAP PO PRN (17:45)
[2020-01-24] MEDS ORDERED: DEXTROSE (50%) 50ML SYRG IV PRN (17:45)
[2020-01-24] MEDS ORDERED: ONDANSETRON HCL 4 MG/2 ML VIAL IV PRN (17:45)
[2020-01-24] MEDS ORDERED: LORazepam 0.5 MG TAB PO PRN ×2 (17:45→18:45)
[2020-01-24] MEDS ORDERED: cefTRIAXone 1GM/50ML D5W 50 ML IV ONE (18:00)
[2020-01-24] MEDS: MORPHINE SULF INJ 2 MG/ML SYRINGE 1ML IV PRN (18:24)
[2020-01-24] MEDS: FERROUS SULFATE 325 MG TAB PO SCH (18:24)
[2020-01-24] MEDS: SODIUM CHLORIDE 0.9% 1,000 ML IV SCH (18:27)
[2020-01-24] MEDS ORDERED: CLINDAMYCIN 600MG IV 50 ML IV ONE (20:00)
[2020-01-24 20:26] LABS: Cholesterol 238 mg/dL (< 200); HDL Cholesterol 59 mg/dL (40-59); LDL Cholesterol 142 mg/dL (< 100); Triglycerides 339 mg/dL (< 150)
[2020-01-24 21:56] VITALS: BP 159/83
[2020-01-24] MEDS: GABAPENTIN 300 MG CAP PO SCH (22:01)
[2020-01-24] MEDS: ATORVASTATIN 20 MG TAB PO SCH (22:01)
[2020-01-24] MEDS: ACCU-CHEK COMFORT CURVE STRIP VI SCH (22:01)
[2020-01-24] MEDS: InsuLIN REG 1unit/0.01ml Soln (100units/ml) SC SCH (22:02)
[2020-01-25] VITALS (8 sets, daily range): BP systolic 142–159; BP diastolic 83–92
[2020-01-25] MEDS: HYDROcodone-ACET 5/325MG TAB PO PRN (05:06)
[2020-01-25] MEDS: GABAPENTIN 300 MG CAP PO SCH ×3 (06:21→21:37)
[2020-01-25] MEDS: CLINDAMYCIN 600MG IV 50 ML IV SCH ×3 (06:21→21:36)
[2020-01-25] MEDS: ACCU-CHEK COMFORT CURVE STRIP VI SCH ×4 (06:22→21:37)
[2020-01-25] MEDS: InsuLIN REG 1unit/0.01ml Soln (100units/ml) SC SCH ×4 (06:26→21:37)
[2020-01-25] MEDS: ACETAMINOPHEN 325 MG TAB PO PRN ×2 (08:57→16:11)
[2020-01-25] MEDS: FERROUS SULFATE 325 MG TAB PO SCH ×2 (08:57→17:53)
[2020-01-25] MEDS: cefTRIAXone 1GM/50ML D5W 50 ML IV SCH (08:57)
[2020-01-25] MEDS: ASPirin 81 mg TAB PO SCH (09:14)
[2020-01-25] MEDS: FLUoxetine HCL 20 MG CAP PO SCH (09:14)
[2020-01-25] MEDS: CHOLECALCIFEROL (VITD3) 2,000 UNIT CAP PO SCH (09:15)
[2020-01-25] MEDS: LOSARTAN POTASSIUM 50 MG TAB PO SCH (09:15)
[2020-01-25] MEDS: SODIUM CHLORIDE 0.9% 1,000 ML IV SCH (10:53)
[2020-01-25 19:00] LABS: Urine WBC None Seen /hpf (0 - 3)
[2020-01-25 19:07] LABS: Urine Bacteria NONE SEEN /hpf (None Seen); Urine Blood Negative /uL (Negative); Urine Specific Gravity 1.021 (1.001-1.035)
[2020-01-25 19:29] LABS: Alcohol, Urine < 3.0 mg/dL (0-10); Amphetamine Screen, Urine NEGATIVE (NEGATIVE); Barbiturate Scree,Urine NEGATIVE (NEGATIVE); Benzodiazephine Screen, Urine NEGATIVE (NEGATIVE); Cannabinoid Screen, Urine NEGATIVE (NEGATIVE); Cocaine Screen, Urine NEGATIVE (NEGATIVE); Opiate Scree,Urine NEGATIVE (NEGATIVE); Phencyclidine Screen, Urine NEGATIVE (NEGATIVE)
[2020-01-25] MEDS: ATORVASTATIN 20 MG TAB PO SCH (21:37)
[2020-01-25] MEDS: MORPHINE SULF INJ 2 MG/ML SYRINGE 1ML IV PRN (21:38)
[2020-01-26] VITALS (7 sets, daily range): BP systolic 124–152; BP diastolic 75–88
[2020-01-26] MEDS: SODIUM CHLORIDE 0.9% 1,000 ML IV SCH (03:05)
[2020-01-26] MEDS: ACETAMINOPHEN 325 MG TAB PO PRN (03:55)
[2020-01-26] MEDS: GABAPENTIN 300 MG CAP PO SCH ×3 (05:20→21:35)
[2020-01-26] MEDS: CLINDAMYCIN 600MG IV 50 ML IV SCH ×3 (05:20→21:36)
[2020-01-26] MEDS: ACCU-CHEK COMFORT CURVE STRIP VI SCH ×4 (06:06→21:41)
[2020-01-26] MEDS: InsuLIN REG 1unit/0.01ml Soln (100units/ml) SC SCH ×4 (06:06→21:43)
[2020-01-26] MEDS ORDERED: LIDOCAINE 1% HCL (LOCAL ANESTH.) INJ 20ML MDV ONE (06:52)
[2020-01-26] MEDS ORDERED: ROPIVACAINE 0.5% (5MG/ML) 20ML AMPULE IJ ONE (06:59)
[2020-01-26] MEDS ORDERED: NEOMYCIN-BACITRACIN-POLYM 15GM TOP OINT TOP ONE (06:59)
[2020-01-26] MEDS ORDERED: ceFAZolin 1GM/50ML 50 ML IV ONE (07:12)
[2020-01-26 07:14] LABS: INR 1.08 (0.9-1.15); Partial Thromboplastin Time 26.5 sec (23.0-31.2)
[2020-01-26] MEDS ORDERED: METOCLOPRAMIDE HCL 5MG/ml INJ 2ml VIAL IV PRN (07:30)
[2020-01-26] MEDS ORDERED: ACCU-CHEK COMFORT CURVE STRIP VI ONE (07:30)
[2020-01-26] MEDS ORDERED: HYDROmorphone HCL 2 MG/ML VL IV PRN (07:30)
[2020-01-26] MEDS ORDERED: MORPHINE SULFATE 4 MG/ML SYR/VIAL IV PRN (07:30)
[2020-01-26] MEDS: cefTRIAXone 1GM/50ML D5W 50 ML IV SCH (08:55)
[2020-01-26] MEDS: FERROUS SULFATE 325 MG TAB PO SCH ×2 (08:56→17:25)
[2020-01-26] MEDS: CHOLECALCIFEROL (VITD3) 2,000 UNIT CAP PO SCH (10:00)
[2020-01-26] MEDS: LOSARTAN POTASSIUM 50 MG TAB PO SCH (10:11)
[2020-01-26] MEDS: FLUoxetine HCL 20 MG CAP PO SCH (10:11)
[2020-01-26] MEDS: ASPirin 81 mg TAB PO SCH (10:11)
[2020-01-26] MEDS: HYDROcodone-ACET 5/325MG TAB PO PRN (17:48)
[2020-01-26] MEDS: ATORVASTATIN 20 MG TAB PO SCH (21:35)
[2020-01-26] MEDS: MORPHINE SULF INJ 2 MG/ML SYRINGE 1ML IV PRN (21:37)
[2020-01-27] MEDS: ACETAMINOPHEN 325 MG TAB PO PRN ×2 (01:18→09:25)
[2020-01-27 05:00] VITALS: BP 122/73
[2020-01-27] MEDS: HYDROcodone-ACET 5/325MG TAB PO PRN (05:37)
[2020-01-27] MEDS: CLINDAMYCIN 600MG IV 50 ML IV SCH (05:37)
[2020-01-27] MEDS: GABAPENTIN 300 MG CAP PO SCH (05:37)
[2020-01-27] MEDS: InsuLIN REG 1unit/0.01ml Soln (100units/ml) SC SCH ×2 (06:20→11:30)
[2020-01-27] MEDS: ACCU-CHEK COMFORT CURVE STRIP VI SCH ×2 (06:21→11:30)
[2020-01-27 08:00] VITALS: BP 127/78
[2020-01-27 09:00] VITALS: BP 127/78
[2020-01-27] MEDS: ASPirin 81 mg TAB PO SCH (09:15)
[2020-01-27] MEDS: FERROUS SULFATE 325 MG TAB PO SCH (09:16)
[2020-01-27] MEDS: LOSARTAN POTASSIUM 50 MG TAB PO SCH (09:16)
[2020-01-27] MEDS: FLUoxetine HCL 20 MG CAP PO SCH (09:17)
[2020-01-27] MEDS: cefTRIAXone 1GM/50ML D5W 50 ML IV SCH (09:18)
[2020-01-27] MEDS ORDERED: CHOLECALCIFEROL (VITD3) 1,000UNIT=25mCg TAB PO SCH (10:00)
[2020-01-27 11:59] VITALS: BP 127/78
[2020-02-24] MEDS ORDERED: ASPI-231 PO (13:20)
[2020-02-24] MEDS ORDERED: CLOP75TA41 PO (13:20)
[2020-02-24] MEDS ORDERED: LEVO500T21 PO (13:21)
[2020-02-24] MEDS ORDERED: LABE100T4 PO (13:23)
[2020-02-24] MEDS ORDERED: LOSA-69 PO (13:26)
[2020-02-24] MEDS ORDERED: SIMV10TA84 PO (13:46)
[2020-02-24] MEDS ORDERED: DOCU-94 PO (13:46)
[2020-02-24] MEDS ORDERED: FERR-20 PO (13:46)
[2020-02-24] MEDS ORDERED: INSU1INJ19 SC (13:46)
== END 2020-01-27 13:08 | disposition home or self-care (01) | DRG 580 ==
LOC: ER 13:07 → TELE 13:08 → TELE-CENTR 20:37
PROVIDERS: ADMIT Hospitalist; ATTEND Internal Medicine
PROC: 0J9Q0ZZ Drainage of Right Foot Subcutaneous Tissue and Fascia, Open Approach (ICD-10-PCS; principal; 2020-01-26 07:26)
DX: L03.115 Cellulitis of right lower limb (principal); L02.611 Cutaneous abscess of right foot; E11.65 Type 2 diabetes mellitus with hyperglycemia; E11.40 Type 2 diabetes mellitus with diabetic neuropathy, unspecified; E78.5 Hyperlipidemia, unspecified; M19.90 Unspecified osteoarthritis, unspecified site; I10 Essential (primary) hypertension; F12.90 Cannabis use, unspecified, uncomplicated; E66.9 Obesity, unspecified; E11.51 Type 2 diabetes mellitus with diabetic peripheral angiopathy without gangrene; F17.200 Nicotine dependence, unspecified, uncomplicated; S90.821A Blister (nonthermal), right foot, initial encounter; X58.XXXA Exposure to other specified factors, initial encounter; Z79.02 Long term (current) use of antithrombotics/antiplatelets; Z79.82 Long term (current) use of aspirin; Z80.9 Family history of malignant neoplasm, unspecified; Z79.84 Long term (current) use of oral hypoglycemic drugs; Z82.49 Family history of ischemic heart disease and other diseases of the circulatory system; Z83.3 Family history of diabetes mellitus; Z89.421 Acquired absence of other right toe(s); Z68.30 Body mass index [BMI] 30.0-30.9, adult; Y93.89 Activity, other specified; Y92.89 Other specified places as the place of occurrence of the external cause; Y99.8 Other external cause status
CPT/HCPCS: 36415; 71045; 73700; 80053; 80061; 80307; 81001; 82962; 83036; 84484; 85025; 85610; 85652; 85730; 87040; 87070; 87075; 87077; 87081; 87086; 87186; 87205; 96365; G0378; J0690; J0696; J1815; J2001; J3490

== ENCOUNTER 2020-02-22 04:44 | Inpatient (IN) | payer MEDICARE ==
[~2020-02-22] VITALS: Ht 185.4 cm; Wt 88.1 kg
[~2020-02-22 04:44] MED LIST changes: +BACL10TA PO; +CHOL20007 PO; +FERR-20 PO; -HCTZ25T PO; +INSU1INJ19 SC; -SIMV-8 PO; +SIMV10TA84 PO
[2020-02-22] MEDS ORDERED: MORPHINE SULFATE 4 MG/ML SYR/VIAL IV ONE ×2 (05:15→06:15)
[2020-02-22] MEDS ORDERED: ASPirin 81 mg TAB PO ONE (05:15)
[2020-02-22] MEDS ORDERED: ONDANSETRON HCL 4 MG/2 ML VIAL IV ONE (05:15)
[2020-02-22] MEDS ORDERED: hydrALAZINE HCL 20 MG/ML VL IV ONE (05:45)
[2020-02-22] MEDS ORDERED: InsuLIN REG 1unit/0.01ml Soln (100units/ml) IV ONE (06:15)
[2020-02-22] MEDS ORDERED: KETOROLAC TROMETH 30 MG/ML 1ML VIAL IV ONE ×2 (06:30)
[2020-02-22 07:23] LABS: Basophils # (auto) 0 10 ^3/uL (0-0.2); Basophils % (auto) 0.1 % (0.0-2.0); Eosinophils # (auto) 0 10 ^3/uL (0-0.8); Hematocrit 44.1 % (41.0-53.0); Hemoglobin 14.6 g/dL (13.5-17.5); Lymphocytes % (auto) 5.9 % (10.0-50.0); Mean Corpuscular Hemoglobin 30.3 pg (28.0-32.0); Mean Corpuscular Hgb Conc. 33.2 g/dL (32.0-36.0); Mean Corpuscular Volume 91.3 fL (80.0-100.0); Monocytes % (auto) 5.5 % (0.0-12.0); Neutrophils # (auto) 15.6 10 ^3/uL (1.6-8.6); Neutrophils % (auto) 88.5 % (37.0-80.0); Platelet Count (auto) 384 10^3/uL (140-450); Red Blood Cells 4.83 10^6/uL (4.5-5.90); Red Cell Distribution Width 12.8 % (11.8-14.3); White Blood Cell 17.7 10^3/uL (4.4-10.8)
[2020-02-22 07:30] LABS: INR 1.19 (0.9-1.15); Partial Thromboplastin Time 25.4 sec (23.0-31.2)
[2020-02-22] MEDS ORDERED: NITROGLYCERIN 0.4 MG SL TAB SL PRN (07:30)
[2020-02-22] MEDS ORDERED: ONDANSETRON HCL 4 MG/2 ML VIAL IV PRN (07:30)
[2020-02-22] MEDS ORDERED: MORPHINE SULF INJ 2 MG/ML SYRINGE 1ML IV PRN (07:30)
[2020-02-22] MEDS ORDERED: DEXTROSE (50%) 50ML SYRG IV PRN (07:30)
[2020-02-22] MEDS ORDERED: ACETAMINOPHEN 325 MG TAB PO PRN (07:30)
[2020-02-22 07:45] LABS: Albumin 4.2 g/dL (3.4-5.0); Anion Gap 12 (5-15); Blood Urea Nitrogen 33 mg/dL (7-18); Calcium 9.3 mg/dL (8.5-10.1); Carbon Dioxide 18 mmol/L (21-32); Chloride 101 mmol/L (98-107); Glucose 249 mg/dL (74-106); Magnesium 2.3 mg/dL (1.6-2.6); Potassium 4.3 mmol/L (3.5-5.1); Sodium 131 mmol/L (136-145)
[2020-02-22 07:51] LABS: Alanine Aminotransferase 26 U/L (16-61); Alkaline Phosphatase 81 U/L (45-117); Aspartate Aminotransferase 14 U/L (15-37); Bilirubin, Total 0.5 mg/dL (0.2-1.0); GFR African American 39 mL/min; GFR Non-African American 32 mL/min; Total Protein 7.4 g/dL (6.4-8.2)
[2020-02-22] MEDS: HYDROcodone-ACET 5/325MG TAB PO PRN ×3 (07:53→18:32)
[2020-02-22] MEDS: cefTRIAXone 1GM/50ML D5W 50 ML IV SCH (09:00)
[2020-02-22] MEDS: ASPirin 81 mg TAB PO SCH (09:41)
[2020-02-22] MEDS: FAMOTIDINE 20 MG TAB PO SCH ×2 (09:41→21:47)
[2020-02-22] MEDS: GABAPENTIN 300 MG CAP PO SCH ×2 (09:41→21:47)
[2020-02-22] MEDS: CLOPIDOGREL BISULFATE 75 MG TAB PO SCH (09:42)
[2020-02-22] MEDS: FLUoxetine HCL 20 MG CAP PO SCH (09:42)
[2020-02-22] MEDS: ENOXAPARIN SOD 40 MG/0.4 ML SYRINGE SC SCH (09:50)
[2020-02-22] MEDS ORDERED: LOSARTAN POTASSIUM 50 MG TAB PO SCH (10:00)
[2020-02-22] MEDS ORDERED: CLOPIDOGREL BISULFATE 75 MG TAB PO SCH (10:00)
[2020-02-22 10:52] LABS: Alcohol, Urine < 3.0 mg/dL (0-10); Amphetamine Screen, Urine POSITIVE (NEGATIVE); Barbiturate Scree,Urine NEGATIVE (NEGATIVE); Benzodiazephine Screen, Urine NEGATIVE (NEGATIVE); Cocaine Screen, Urine NEGATIVE (NEGATIVE); Opiate Scree,Urine NEGATIVE (NEGATIVE); Phencyclidine Screen, Urine NEGATIVE (NEGATIVE)
[2020-02-22 10:58] LABS: Cannabinoid Screen, Urine POSITIVE (NEGATIVE)
[2020-02-22] MEDS ORDERED: NEOMYCIN-BACITRACIN-POLYM 15GM TOP OINT TOP ONE (11:30)
[2020-02-22] MEDS: ACCU-CHEK COMFORT CURVE STRIP VI SCH ×3 (12:05→21:47)
[2020-02-22] MEDS: InsuLIN REG 1unit/0.01ml Soln (100units/ml) SC SCH ×3 (12:18→21:46)
[2020-02-22] MEDS: SODIUM CHLORIDE 0.9% 1,000 ML IV SCH (16:00)
[2020-02-22] MEDS ORDERED: hydrALAZINE HCL 25 MG TAB PO PRN (16:15)
--- NOTE | 2020-02-22 18:30 | NUR ---
REPORT RECEIVED FROM [employer] PROFESSOR KRZYSZTOF MIR PER RN PATIENT ALERT AND ORIENTED, RN STATED "PATIENT WONT STOP MOVING AROUND". [employer] PROFESSOR TO TAKE WOUND PHOTO OR RIGHT GREAT TOE AND GIVE PAIN MEDICATION FOR PAIN 02/04.
[2020-02-22] MEDS: LORazepam 0.5 MG TAB PO PRN (18:31)
--- NOTE | 2020-02-22 19:00 | NUR ---
ENDORSED CARE TO NIGHT RN ABEL; PATIENT JUST ARRIVED TO UNIT. RESOURCE RN TO COMPLETE ADMISSION.
--- NOTE | 2020-02-22 19:50 | NUR ---
Opening Shift Note Assumed care of patient, awake and alert. No S/S of distress/SOB or pain. Instructed on POC and to call for assist PRN. Bed in lowest locked position, call light within reach, side rails up x2, fall precautions in place. Will continue to monitor for changes Q1hr and PRN.
[2020-02-22] MEDS: TEMAZEPAM 15 MG CAP PO PRN (21:47)
[2020-02-22] MEDS: ATORVASTATIN 20 MG TAB PO SCH (21:47)
[2020-02-22] MEDS: METOPROLOL TARTRATE 25 MG TAB PO SCH (21:48)
[2020-02-22 22:00] VITALS: BP 156/83
[2020-02-23] MEDS: HYDROcodone-ACET 5/325MG TAB PO PRN ×3 (02:36→21:34)
[2020-02-23 05:00] VITALS: BP 159/88
[2020-02-23] MEDS: LORazepam 0.5 MG TAB PO PRN (05:11)
[2020-02-23] MEDS: InsuLIN REG 1unit/0.01ml Soln (100units/ml) SC SCH ×4 (06:43→23:31)
[2020-02-23 06:46] LABS: Basophils # (auto) 0 10 ^3/uL (0-0.2); Basophils % (auto) 0.2 % (0.0-2.0); Eosinophils # (auto) 0 10 ^3/uL (0-0.8); Eosinophils % (auto) 0.1 % (0.0-7.0); Hematocrit 42.9 % (41.0-53.0); Hemoglobin 14.2 g/dL (13.5-17.5); Lymphocytes # (auto) 1.2 10 ^3/uL (0.4-5.4); Lymphocytes % (auto) 11.4 % (10.0-50.0); Mean Corpuscular Hemoglobin 30.5 pg (28.0-32.0); Mean Corpuscular Hgb Conc. 33.1 g/dL (32.0-36.0); Mean Corpuscular Volume 92.1 fL (80.0-100.0); Monocytes # (auto) 0.8 10 ^3/uL (0-1.3); Neutrophils # (auto) 8.9 10 ^3/uL (1.6-8.6); Neutrophils % (auto) 81.3 % (37.0-80.0); Platelet Count (auto) 326 10^3/uL (140-450); Red Blood Cells 4.65 10^6/uL (4.5-5.90)
[2020-02-23] MEDS: ACCU-CHEK COMFORT CURVE STRIP VI SCH ×4 (06:46→22:25)
[2020-02-23 07:00] LABS: INR 1.13 (0.9-1.15)
[2020-02-23 07:13] LABS: Calcium 9.2 mg/dL (8.5-10.1); Magnesium 2.6 mg/dL (1.6-2.6); Potassium 4.4 mmol/L (3.5-5.1)
[2020-02-23 07:18] LABS: BUN/Creatinine Ratio 22.2; Bilirubin, Total 0.5 mg/dL (0.2-1.0); Total Protein 7.4 g/dL (6.4-8.2)
[2020-02-23 09:00] VITALS: BP 151/95
[2020-02-23] MEDS: GABAPENTIN 300 MG CAP PO SCH ×2 (09:32→22:25)
[2020-02-23] MEDS: METOPROLOL TARTRATE 25 MG TAB PO SCH ×2 (09:32→22:25)
[2020-02-23] MEDS: CLOPIDOGREL BISULFATE 75 MG TAB PO SCH (09:33)
[2020-02-23] MEDS: ENOXAPARIN SOD 40 MG/0.4 ML SYRINGE SC SCH (09:33)
[2020-02-23] MEDS: FLUoxetine HCL 20 MG CAP PO SCH (09:33)
[2020-02-23] MEDS: ASPirin 81 mg TAB PO SCH (09:33)
[2020-02-23] MEDS: FAMOTIDINE 20 MG TAB PO SCH ×2 (09:33→22:25)
[2020-02-23] MEDS: cefTRIAXone 1GM/50ML D5W 50 ML IV SCH (09:34)
[2020-02-23] MEDS: SODIUM CHLORIDE 0.9% 1,000 ML IV SCH (09:53)
--- NOTE | 2020-02-23 11:02 | NUR ---
WOUND CARE NOTE: Wound care in to see patient per wound care request regarding wounds/skin issue that are noted present on admission. Bedside nurse took photograph of patient's wounds upon admission for reference. Patient is 64 years old male with admitting diagnosis of Accelerated Hypertension. Patient is resting in bed in Rm. 218B. He's awake, alert and oriented. He's in no stated pain at this time. Patient is self turning and repositioning. His Jay score is 18. Noted patient's Rt foot with missing Rt 2nd and R 3rd toe with well healed pink scar tissue. 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 2x1.5cm, Dry scabbed wound noted to his Rt lateral foot. Nolvia wound is bright red,no drainage/odor noted. Cleansed Rt lateral foot wound with Betadine, left open to air. Patient's Rt plantar great toe noted with 1x3.5x0.5cm split/open hyperkeratotic wound. Wound is pale pink with yellow hyperkeratotic nolvia wound, no drainage/odor noted. Cleansed patient's Rt great toe wound with mild soap and water,patted dry, applied [place] gel to wound bed area, covered wound with Opti foam dressing. 5x3cm scabbed abrasion noted to his L lateral lower leg, surrounding skin is pink, clean and dry, left open to air. Patient tolerated well and denies any other wound. RECOMMENDATION: Nursing to continue with Daily/PRN dressing change to Rt Great toe and Rt lateral foot wounds per MD order, elevate edematous extremity on pillows, continue monitoring by wound care while patient is hospitalized. Addendum: 02/23/20 at 1528 by Lili Luevano RN Amended: Links added.
[2020-02-23 13:00] VITALS: BP 144/82
[2020-02-23] MEDS ORDERED: ASPI-231 PO (13:39)
[2020-02-23] MEDS ORDERED: HYDR25TA4 PO (13:39)
[2020-02-23 16:51] VITALS: BP 147/88
--- NOTE | 2020-02-23 19:11 | NUR ---
Opening Shift Note Assumed care of patient, awake and alert x4. No S/S of distress/SOB or pain. Bed in low locked position, call light within reach, non skid socks on, safety fall precaution education given . Instructed on POC and to call for assist PRN, will continue to monitor for changes Q1hr and PRN.
--- NOTE | 2020-02-23 19:11 | NUR ---
endorsed care to night vic yao.
--- NOTE | 2020-02-23 20:45 | NUR ---
Wound care done. Patient requested to clean his Right lateral foot wound with betadine and cover it with gauze and coband. Placed non skid socks on. will continue to monitor patient.
--- NOTE | 2020-02-23 21:34 | NUR ---
Pain medication given pls see emar. tolerated.
[2020-02-23] MEDS: TEMAZEPAM 15 MG CAP PO PRN (21:54)
--- NOTE | 2020-02-23 21:54 | NUR ---
Patient requested for sleeping pill. pls see emar. tolerated.
[2020-02-23 22:14] VITALS: BP 123/80
[2020-02-23] MEDS: ATORVASTATIN 20 MG TAB PO SCH (22:24)
--- NOTE | 2020-02-24 02:48 | NUR ---
Patient asleep. no signs of sob or acute distress. will continue to monitor patient.
[2020-02-24] MEDS: HYDROcodone-ACET 5/325MG TAB PO PRN ×2 (04:56→09:33)
[2020-02-24 05:19] VITALS: BP 135/79
[2020-02-24] MEDS: LORazepam 0.5 MG TAB PO PRN (05:47)
[2020-02-24 06:22] LABS: Basophils # (auto) 0 10 ^3/uL (0-0.2); Basophils % (auto) 0.4 % (0.0-2.0); Eosinophils # (auto) 0.1 10 ^3/uL (0-0.8); Eosinophils % (auto) 1.7 % (0.0-7.0); Hematocrit 43.6 % (41.0-53.0); Hemoglobin 14.4 g/dL (13.5-17.5); Lymphocytes # (auto) 2.1 10 ^3/uL (0.4-5.4); Lymphocytes % (auto) 24.9 % (10.0-50.0); Mean Corpuscular Hemoglobin 30.5 pg (28.0-32.0); Mean Corpuscular Hgb Conc. 33.1 g/dL (32.0-36.0); Mean Corpuscular Volume 92.3 fL (80.0-100.0); Monocytes # (auto) 0.8 10 ^3/uL (0-1.3); Monocytes % (auto) 9.9 % (0.0-12.0); Neutrophils # (auto) 5.2 10 ^3/uL (1.6-8.6); Neutrophils % (auto) 63.1 % (37.0-80.0); Nucleated Red Blood Cells % 0.9 %; Platelet Count (auto) 306 10^3/uL (140-450); Red Blood Cells 4.72 10^6/uL (4.5-5.90); Red Cell Distribution Width 13.2 % (11.8-14.3); White Blood Cell 8.3 10^3/uL (4.4-10.8)
[2020-02-24] MEDS: InsuLIN REG 1unit/0.01ml Soln (100units/ml) SC SCH ×2 (06:32→12:14)
[2020-02-24] MEDS: ACCU-CHEK COMFORT CURVE STRIP VI SCH ×2 (06:33→12:13)
[2020-02-24 06:49] LABS: Potassium 4.2 mmol/L (3.5-5.1)
[2020-02-24 06:50] LABS: Calcium 9.3 mg/dL (8.5-10.1)
[2020-02-24 06:53] LABS: BUN/Creatinine Ratio 31.7
--- NOTE | 2020-02-24 07:30 | NUR ---
Closing shift report Patient no SOB, Denies any pain, bed in low locked position, siderails up x2, call light within reach.
--- NOTE | 2020-02-24 07:30 | NUR ---
RECEIVED REPORT FROM NIGHT NURSE. PATIENT RESTING IN BED, NO DISTRESS NOTED. WILL CONTINUE TO MONITOR.
[2020-02-24 08:52] VITALS: BP 129/81
[2020-02-24 09:11] LABS: Hepatitis B Surface Antibody Negative
[2020-02-24] MEDS: ENOXAPARIN SOD 40 MG/0.4 ML SYRINGE SC SCH (09:32)
[2020-02-24] MEDS: cefTRIAXone 1GM/50ML D5W 50 ML IV SCH (09:32)
[2020-02-24] MEDS: FAMOTIDINE 20 MG TAB PO SCH (09:32)
[2020-02-24] MEDS: ASPirin 81 mg TAB PO SCH (09:32)
[2020-02-24] MEDS: GABAPENTIN 300 MG CAP PO SCH (09:32)
[2020-02-24] MEDS: CLOPIDOGREL BISULFATE 75 MG TAB PO SCH (09:33)
[2020-02-24] MEDS: FLUoxetine HCL 20 MG CAP PO SCH (09:33)
[2020-02-24] MEDS: METOPROLOL TARTRATE 25 MG TAB PO SCH (09:33)
[2020-02-24 09:43] LABS: Hepatitis A Total Antibody Negative
[2020-02-24 10:16] LABS: Hepatitis B Core Total AB Negative; Hepatitis B Surface Antigen Negative (Negative); Hepatitis C Antibody Negative (Negative)
--- NOTE | 2020-02-24 11:24 | NUR ---
DR. MENARD AT BEDSIDE.
--- NOTE | 2020-02-24 12:21 | NUR ---
Nutrition Assessment Note please see attached link fro complete assessment Est energy needs BW [id number] kcal (25-30 kcal/kg BW) Est protein needs: 88-105g (1.0-1.2 g/kg BW) Will reassess prn. Addendum: 02/24/20 at [address] Amended: Links added.
[2020-02-24 13:00] VITALS: BP 136/73
[2020-02-24] MEDS ORDERED: ASPI-231 PO (13:20)
[2020-02-24] MEDS ORDERED: CLOP75TA41 PO (13:20)
[2020-02-24] MEDS ORDERED: LEVO500T21 PO (13:21)
[2020-02-24] MEDS ORDERED: LABE100T4 PO (13:23)
[2020-02-24] MEDS ORDERED: LOSA-69 PO (13:26)
[2020-02-24] MEDS ORDERED: INSU1INJ19 SC (13:46)
[2020-02-24] MEDS ORDERED: SIMV10TA84 PO (13:46)
[2020-02-24] MEDS ORDERED: FERR-20 PO (13:46)
[2020-02-24] MEDS ORDERED: DOCU-94 PO (13:46)
[2020-02-24 16:39] VITALS: BP 123/78
--- NOTE | 2020-02-24 16:47 | NUR ---
Discharge instructions given as ordered. Encourage to follow up with PMD as instructed. All questions and concerns addressed. Patient verbalized understanding. Medication reconciliation form completed and copy given to patient. IV removed with catheter intact, pressure dressing applied. Telemetry unit returned to ICU. Patient taken to vehicle with all personal belongings, accompanied by staff member. No distress noted at time of departure.
== END 2020-02-24 16:50 | disposition home or self-care (01) | DRG 313 ==
LOC: ER 04:44 → TELE 04:45 → TELE-CENTR 18:55
PROVIDERS: ADMIT Nurse Practitioner; ATTEND Internal Medicine
DX: R07.89 Other chest pain (principal); N17.0 Acute kidney failure with tubular necrosis; L03.116 Cellulitis of left lower limb; R65.10 Systemic inflammatory response syndrome (SIRS) of non-infectious origin without acute organ dysfunction; Z71.51 Drug abuse counseling and surveillance of drug abuser; E11.21 Type 2 diabetes mellitus with diabetic nephropathy; E11.65 Type 2 diabetes mellitus with hyperglycemia; J44.9 Chronic obstructive pulmonary disease, unspecified; N18.9 Chronic kidney disease, unspecified; E11.22 Type 2 diabetes mellitus with diabetic chronic kidney disease; I12.9 Hypertensive chronic kidney disease with stage 1 through stage 4 chronic kidney disease, or unspecified chronic kidney disease; E11.51 Type 2 diabetes mellitus with diabetic peripheral angiopathy without gangrene; E78.5 Hyperlipidemia, unspecified; Z80.9 Family history of malignant neoplasm, unspecified; Z89.421 Acquired absence of other right toe(s); Z91.14 Patient's other noncompliance with medication regimen; Z82.49 Family history of ischemic heart disease and other diseases of the circulatory system; F12.10 Cannabis abuse, uncomplicated; F15.10 Other stimulant abuse, uncomplicated
CPT/HCPCS: 36415; 36600; 71045; 80048; 80053; 80061; 80307; 82010; 82805; 82962; 83036; 83735; 83880; 84443; 84484; 85025; 85610; 85730; 86704; 86706; 86708; 86803; 87040; 87086; 87340; 93005; 93306; 93926; G0378; J0696; J1815; J1885; J2405

== ENCOUNTER 2020-09-29 09:02 | Inpatient (IN) | payer MEDICARE ==
[~2020-09-29] VITALS: Ht 180.3 cm; Wt 89.1 kg
[2020-09-29 05:00] VITALS: BP 144/79
[~2020-09-29 09:02] MED LIST changes: -BACL10TA PO; -CLOP75TA41 PO; +CLOP75TA70 PO; +DOCU-94 PO; +LABE100T4 PO; -LOSA-39 PO; +LOSA-69 PO
[2020-09-29] MEDS ORDERED: SODIUM CHLORIDE 0.9% 1,000 ML IV ONE ×2 (09:15)
[2020-09-29 09:57] LABS: Basophils # (auto) 0 10 ^3/uL (0-0.2); Basophils % (auto) 0.7 % (0.0-2.0); Eosinophils # (auto) 0.1 10 ^3/uL (0-0.8); Eosinophils % (auto) 1.1 % (0.0-7.0); Hematocrit 39.9 % (41.0-53.0); Hemoglobin 13.3 g/dL (13.5-17.5); Lymphocytes # (auto) 1.7 10 ^3/uL (0.4-5.4); Lymphocytes % (auto) 25.1 % (10.0-50.0); Mean Corpuscular Hemoglobin 29.8 pg (28.0-32.0); Mean Corpuscular Hgb Conc. 33.3 g/dL (32.0-36.0); Mean Corpuscular Volume 89.3 fL (80.0-100.0); Monocytes # (auto) 0.4 10 ^3/uL (0-1.3); Monocytes % (auto) 5.9 % (0.0-12.0); Neutrophils # (auto) 4.5 10 ^3/uL (1.6-8.6); Neutrophils % (auto) 67.2 % (37.0-80.0); Red Blood Cells 4.46 10^6/uL (4.5-5.90); Red Cell Distribution Width 13.2 % (11.8-14.3); White Blood Cell 6.7 10^3/uL (4.4-10.8)
[2020-09-29 10:10] LABS: INR 1.15 (0.9-1.15); Partial Thromboplastin Time 24.8 sec (23.0-31.2)
[2020-09-29 10:12] LABS: Albumin 3.5 g/dL (3.4-5.0); BUN/Creatinine Ratio 15.8; Calcium 8.7 mg/dL (8.5-10.1); Potassium 4.3 mmol/L (3.5-5.1)
[2020-09-29 10:18] LABS: Bilirubin, Total 0.5 mg/dL (0.2-1.0); Total Protein 7.5 g/dL (6.4-8.2)
[2020-09-29] MEDS ORDERED: cefTRIAXone 1GM/50ML D5W 50 ML IV ONE (11:15)
[2020-09-29] MEDS ORDERED: NITROGLYCERIN 0.4 MG SL TAB SL PRN (11:15)
[2020-09-29] MEDS ORDERED: MORPHINE SULFATE INJECTION 2 MG/ML SYRG IV PRN (11:15)
[2020-09-29] MEDS ORDERED: LACTULOSE 20Gm/30ML SOLN PO PRN (11:15)
[2020-09-29] MEDS ORDERED: PROMETHAZINE HCL 25 MG/ML 1ML IV PRN (11:15)
[2020-09-29] MEDS ORDERED: VANCOMYCIN PER PHARMACY 0 MG IV SCH (11:15)
[2020-09-29] MEDS ORDERED: ACETAMINOPHEN 500 MG TAB PO PRN (11:15)
[2020-09-29] MEDS ORDERED: VANCOMYCIN 1GM/250ML 250 ML IV ONE (11:15)
[2020-09-29] MEDS ORDERED: DEXTROSE (50%) 50ML SYRG IV PRN (11:15)
[2020-09-29] MEDS: ACCU-CHEK COMFORT CURVE STRIP VI SCH ×3 (11:37→21:00)
[2020-09-29] MEDS: InsuLIN REG 1unit/0.01ml Soln (100units/ml) SC SCH ×3 (11:41→21:00)
[2020-09-29] MEDS: SODIUM CHLORIDE 0.9% 1,000 ML IV SCH (13:04)
[2020-09-29] MEDS: GABAPENTIN 300 MG CAP PO SCH ×2 (13:49→21:00)
[2020-09-29] MEDS: MORPHINE SULFATE INJECTION 2 MG/ML SYRG IV PRN ×2 (13:49→18:53)
[2020-09-29] MEDS ORDERED: BACL10TA PO (14:56)
[2020-09-29] MEDS ORDERED: ACET-6 PO (14:56)
[2020-09-29 14:58] VITALS: BP 155/71
[2020-09-29 17:20] VITALS: BP 133/78
[2020-09-29 17:58] LABS: Urine Bacteria NONE SEEN /hpf (None Seen); Urine Blood Negative /uL (Negative); Urine Specific Gravity 1.023 (1.001-1.035); Urine WBC None Seen /hpf (0 - 3)
[2020-09-29 18:24] LABS: Amphetamine Screen, Urine NEGATIVE (NEGATIVE); Barbiturate Scree,Urine NEGATIVE (NEGATIVE); Benzodiazephine Screen, Urine NEGATIVE (NEGATIVE); Cannabinoid Screen, Urine NEGATIVE (NEGATIVE); Cocaine Screen, Urine NEGATIVE (NEGATIVE); Opiate Scree,Urine NEGATIVE (NEGATIVE); Phencyclidine Screen, Urine NEGATIVE (NEGATIVE)
[2020-09-29] MEDS: DOCUSATE SOD 100 MG CAP PO SCH (21:00)
[2020-09-29] MEDS: LABETALOL HCL 200 MG TAB PO SCH (21:01)
[2020-09-29] MEDS: PRAVASTATIN SODIUM 20 MG TAB PO SCH (21:01)
[2020-09-29 22:00] VITALS: BP 149/87
[2020-09-30] MEDS: SODIUM CHLORIDE 0.9% 1,000 ML IV SCH ×3 (00:12→17:15)
[2020-09-30] MEDS: MORPHINE SULFATE INJECTION 2 MG/ML SYRG IV PRN ×4 (00:13→23:19)
[2020-09-30] MEDS: VANCOMYCIN 1GM/250ML 250 ML IV SCH ×2 (01:55→16:05)
[2020-09-30] MEDS: GABAPENTIN 300 MG CAP PO SCH ×3 (04:25→21:52)
[2020-09-30 05:00] VITALS: BP 144/79
[2020-09-30] MEDS: ACCU-CHEK COMFORT CURVE STRIP VI SCH ×4 (06:26→21:53)
[2020-09-30] MEDS: INSULIN LANTUS (GLARGINE) 1 /0.01ml (100units/ml) SC SCH (06:27)
[2020-09-30] MEDS: InsuLIN REG 1unit/0.01ml Soln (100units/ml) SC SCH ×4 (06:28→21:53)
[2020-09-30 07:21] LABS: Basophils # (auto) 0 10 ^3/uL (0-0.2); Basophils % (auto) 0.8 % (0.0-2.0); Eosinophils # (auto) 0.1 10 ^3/uL (0-0.8); Eosinophils % (auto) 2.8 % (0.0-7.0); Hematocrit 37.1 % (41.0-53.0); Hemoglobin 12.1 g/dL (13.5-17.5); Lymphocytes # (auto) 1.2 10 ^3/uL (0.4-5.4); Lymphocytes % (auto) 22.9 % (10.0-50.0); Mean Corpuscular Hemoglobin 29.3 pg (28.0-32.0); Mean Corpuscular Hgb Conc. 32.6 g/dL (32.0-36.0); Mean Corpuscular Volume 89.9 fL (80.0-100.0); Monocytes # (auto) 0.4 10 ^3/uL (0-1.3); Monocytes % (auto) 7.6 % (0.0-12.0); Neutrophils # (auto) 3.5 10 ^3/uL (1.6-8.6); Neutrophils % (auto) 65.9 % (37.0-80.0); Nucleated Red Blood Cells % 0.1 %; Red Blood Cells 4.12 10^6/uL (4.5-5.90); White Blood Cell 5.4 10^3/uL (4.4-10.8)
[2020-09-30] MEDS: ENOXAPARIN SOD 40 MG/0.4 ML SYRINGE SC SCH (08:55)
[2020-09-30 09:00] VITALS: BP 132/77
[2020-09-30] MEDS: cefTRIAXone 1GM/50ML D5W 50 ML IV SCH (09:00)
[2020-09-30] MEDS: CHOLECALCIFEROL (VITD3) 2,000 UNIT CAP/TAB PO SCH (09:00)
[2020-09-30] MEDS: DOCUSATE SOD 100 MG CAP PO SCH ×2 (09:01→21:51)
[2020-09-30] MEDS: FERROUS SULFATE 325mg EC TAB PO SCH (09:01)
[2020-09-30] MEDS: LOSARTAN POTASSIUM 50 MG TAB PO SCH (09:02)
[2020-09-30] MEDS: FLUoxetine HCL 20 MG CAP PO SCH (09:10)
[2020-09-30] MEDS: LABETALOL HCL 200 MG TAB PO SCH ×2 (10:00→21:52)
[2020-09-30 13:00] VITALS: BP 144/75
[2020-09-30] MEDS: ROPIVACAINE 0.5% (5MG/ML) 20ML AMPULE IJ ONE ×2 (13:07→14:29)
[2020-09-30] MEDS ORDERED: NEOMYCIN-BACITRACIN-POLYM 15GM TOP OINT TOP ONE (13:07)
[2020-09-30] MEDS ORDERED: ceFAZolin 1GM/50ML 100 ML IV ONE (13:28)
[2020-09-30] MEDS ORDERED: MIDAZOLAM HCL 2MG/2ML 2ml VIAL (1mg/ml) ONE (13:32)
[2020-09-30] MEDS: ceFAZolin 1GM VL ONE ×2 (13:32→14:29)
[2020-09-30] MEDS ORDERED: fentaNYL CITRATE 100 MCG/2 ML VL ONE (13:32)
[2020-09-30] MEDS ORDERED: PROPOFOL 10 MG/ML 20 ML IV ONE (13:34)
[2020-09-30] MEDS ORDERED: HYDROmorphone HCL 2 MG/ML VL IV PRN (14:45)
[2020-09-30] MEDS ORDERED: METOCLOPRAMIDE HCL 5MG/ml INJ 2ml VIAL IV PRN (14:45)
[2020-09-30] MEDS ORDERED: HYDROmorphone HCL 2 MG/ML VL ONE (14:54)
[2020-09-30] MEDS: HYDROmorphone HCL 2 MG/ML VL IV PRN ×2 (14:58→15:12)
[2020-09-30 16:44] VITALS: BP 143/90
[2020-09-30] MEDS: TEMAZEPAM 15 MG CAP PO PRN (21:54)
[2020-09-30 22:00] VITALS: BP 155/83
[2020-09-30] MEDS: PRAVASTATIN SODIUM 20 MG TAB PO SCH (22:00)
[2020-09-30] MEDS: ATORVASTATIN 20 MG TAB PO SCH (22:01)
[2020-10-01] MEDS: traMADol HCL 50 MG TAB PO PRN ×3 (02:17→18:00)
[2020-10-01] MEDS: SODIUM CHLORIDE 0.9% 1,000 ML IV SCH ×3 (03:15→23:15)
[2020-10-01 05:00] VITALS: BP 119/65
[2020-10-01] MEDS: MORPHINE SULFATE INJECTION 2 MG/ML SYRG IV PRN ×2 (05:13→09:45)
[2020-10-01 05:34] LABS: Basophils # (auto) 0 10 ^3/uL (0-0.2); Basophils % (auto) 0.6 % (0.0-2.0); Eosinophils # (auto) 0.2 10 ^3/uL (0-0.8); Hematocrit 38.4 % (41.0-53.0); Hemoglobin 12.9 g/dL (13.5-17.5); Lymphocytes # (auto) 1.5 10 ^3/uL (0.4-5.4); Lymphocytes % (auto) 21.8 % (10.0-50.0); Mean Corpuscular Hemoglobin 30.1 pg (28.0-32.0); Mean Corpuscular Hgb Conc. 33.5 g/dL (32.0-36.0); Mean Corpuscular Volume 89.9 fL (80.0-100.0); Monocytes # (auto) 0.5 10 ^3/uL (0-1.3); Neutrophils # (auto) 4.8 10 ^3/uL (1.6-8.6); Neutrophils % (auto) 67.6 % (37.0-80.0); Nucleated Red Blood Cells % 0.1 %; Red Blood Cells 4.28 10^6/uL (4.5-5.90); Red Cell Distribution Width 13.4 % (11.8-14.3); White Blood Cell 7.1 10^3/uL (4.4-10.8)
[2020-10-01 05:52] LABS: Calcium 8.6 mg/dL (8.5-10.1); Potassium 4.1 mmol/L (3.5-5.1)
[2020-10-01 05:56] LABS: BUN/Creatinine Ratio 15.9
[2020-10-01 05:57] LABS: Bilirubin, Total 0.4 mg/dL (0.2-1.0); Total Protein 6.4 g/dL (6.4-8.2)
[2020-10-01] MEDS: GABAPENTIN 300 MG CAP PO SCH ×3 (06:32→21:50)
[2020-10-01] MEDS: VANCOMYCIN 1GM/250ML 250 ML IV SCH ×2 (06:32→16:00)
[2020-10-01] MEDS: ACCU-CHEK COMFORT CURVE STRIP VI SCH ×4 (06:33→21:51)
[2020-10-01] MEDS: INSULIN LANTUS (GLARGINE) 1 /0.01ml (100units/ml) SC SCH (06:34)
[2020-10-01] MEDS: InsuLIN REG 1unit/0.01ml Soln (100units/ml) SC SCH ×4 (06:34→21:57)
[2020-10-01 08:00] VITALS: BP 141/76
[2020-10-01] MEDS: CHOLECALCIFEROL (VITD3) 2,000 UNIT CAP/TAB PO SCH (09:41)
[2020-10-01] MEDS: ASPirin-EC 81 mg tab PO SCH (09:41)
[2020-10-01] MEDS: CLOPIDOGREL BISULFATE 75 MG TAB PO SCH (09:41)
[2020-10-01] MEDS: cefTRIAXone 1GM/50ML D5W 50 ML IV SCH (09:41)
[2020-10-01] MEDS: ENOXAPARIN SOD 40 MG/0.4 ML SYRINGE SC SCH (09:41)
[2020-10-01] MEDS: FERROUS SULFATE 325mg EC TAB PO SCH (09:42)
[2020-10-01] MEDS: FLUoxetine HCL 20 MG CAP PO SCH (09:42)
[2020-10-01] MEDS: DOCUSATE SOD 100 MG CAP PO SCH ×2 (09:42→21:50)
[2020-10-01] MEDS: LOSARTAN POTASSIUM 50 MG TAB PO SCH (09:43)
[2020-10-01] MEDS: LABETALOL HCL 200 MG TAB PO SCH ×2 (09:43→21:51)
[2020-10-01 12:00] VITALS: BP 137/78
[2020-10-01] MEDS: Glucerna Carbsteady SHAKE Vanilla 8oz PO SCH ×2 (12:00→17:45)
[2020-10-01 16:00] VITALS: BP 152/88
[2020-10-01] MEDS: ATORVASTATIN 20 MG TAB PO SCH (21:50)
[2020-10-01] MEDS: PRAVASTATIN SODIUM 20 MG TAB PO SCH (21:51)
[2020-10-01] MEDS: TEMAZEPAM 15 MG CAP PO PRN (21:51)
[2020-10-01 22:00] VITALS: BP 160/93
[2020-10-02] MEDS: VANCOMYCIN 1GM/250ML 250 ML IV SCH ×3 (02:00→22:38)
[2020-10-02] MEDS: traMADol HCL 50 MG TAB PO PRN ×3 (03:39→16:51)
[2020-10-02 05:00] VITALS: BP 126/72
[2020-10-02] MEDS: GABAPENTIN 300 MG CAP PO SCH ×3 (05:56→22:38)
[2020-10-02 06:07] LABS: Basophils # (auto) 0 10 ^3/uL (0-0.2); Basophils % (auto) 0.6 % (0.0-2.0); Eosinophils # (auto) 0.2 10 ^3/uL (0-0.8); Eosinophils % (auto) 3.1 % (0.0-7.0); Hematocrit 37.2 % (41.0-53.0); Hemoglobin 12.6 g/dL (13.5-17.5); Lymphocytes # (auto) 1.4 10 ^3/uL (0.4-5.4); Lymphocytes % (auto) 21.1 % (10.0-50.0); Mean Corpuscular Hemoglobin 30.4 pg (28.0-32.0); Mean Corpuscular Hgb Conc. 33.8 g/dL (32.0-36.0); Mean Corpuscular Volume 89.7 fL (80.0-100.0); Monocytes # (auto) 0.5 10 ^3/uL (0-1.3); Monocytes % (auto) 8.4 % (0.0-12.0); Neutrophils # (auto) 4.3 10 ^3/uL (1.6-8.6); Neutrophils % (auto) 66.8 % (37.0-80.0); Nucleated Red Blood Cells % 0.1 %; Red Blood Cells 4.14 10^6/uL (4.5-5.90); Red Cell Distribution Width 13.5 % (11.8-14.3); White Blood Cell 6.4 10^3/uL (4.4-10.8)
[2020-10-02 06:16] LABS: BUN/Creatinine Ratio 14.6; Calcium 8.8 mg/dL (8.5-10.1); Potassium 4.7 mmol/L (3.5-5.1)
[2020-10-02] MEDS: INSULIN LANTUS (GLARGINE) 1 /0.01ml (100units/ml) SC SCH ×2 (06:28→22:56)
[2020-10-02] MEDS: InsuLIN REG 1unit/0.01ml Soln (100units/ml) SC SCH ×4 (06:29→22:49)
[2020-10-02] MEDS: ACCU-CHEK COMFORT CURVE STRIP VI SCH ×4 (06:58→22:39)
[2020-10-02 08:00] VITALS: BP 133/82
[2020-10-02] MEDS: FERROUS SULFATE 325mg EC TAB PO SCH (08:32)
[2020-10-02] MEDS: Glucerna Carbsteady SHAKE Vanilla 8oz PO SCH ×3 (08:32→16:51)
[2020-10-02] MEDS: ASPirin-EC 81 mg tab PO SCH (08:33)
[2020-10-02] MEDS: DOCUSATE SOD 100 MG CAP PO SCH ×2 (08:33→22:38)
[2020-10-02] MEDS: cefTRIAXone 1GM/50ML D5W 50 ML IV SCH (08:33)
[2020-10-02] MEDS: CLOPIDOGREL BISULFATE 75 MG TAB PO SCH (08:34)
[2020-10-02] MEDS: LABETALOL HCL 200 MG TAB PO SCH ×2 (08:34→22:39)
[2020-10-02] MEDS: CHOLECALCIFEROL (VITD3) 2,000 UNIT CAP/TAB PO SCH (08:35)
[2020-10-02] MEDS: ENOXAPARIN SOD 40 MG/0.4 ML SYRINGE SC SCH (08:35)
[2020-10-02] MEDS: FLUoxetine HCL 20 MG CAP PO SCH (08:35)
[2020-10-02] MEDS: MORPHINE SULFATE INJECTION 2 MG/ML SYRG IV PRN ×2 (08:36→20:52)
[2020-10-02 11:27] LABS: Basophils # (auto) 0 10 ^3/uL (0-0.2); Basophils % (auto) 0.3 % (0.0-2.0); Eosinophils # (auto) 0.1 10 ^3/uL (0-0.8); Eosinophils % (auto) 1.7 % (0.0-7.0); Hemoglobin 12.3 g/dL (13.5-17.5); Lymphocytes # (auto) 1.4 10 ^3/uL (0.4-5.4); Lymphocytes % (auto) 18.4 % (10.0-50.0); Mean Corpuscular Hemoglobin 29.2 pg (28.0-32.0); Mean Corpuscular Hgb Conc. 32.4 g/dL (32.0-36.0); Monocytes # (auto) 0.6 10 ^3/uL (0-1.3); Monocytes % (auto) 7.9 % (0.0-12.0); Neutrophils # (auto) 5.3 10 ^3/uL (1.6-8.6); Neutrophils % (auto) 71.7 % (37.0-80.0); Nucleated Red Blood Cells % 0.1 %; Red Blood Cells 4.22 10^6/uL (4.5-5.90); Red Cell Distribution Width 13.5 % (11.8-14.3); White Blood Cell 7.4 10^3/uL (4.4-10.8)
[2020-10-02 12:00] VITALS: BP 146/85
[2020-10-02] MEDS: LOSARTAN POTASSIUM 50 MG TAB PO SCH (12:37)
[2020-10-02] MEDS: SODIUM CHLORIDE 0.9% 1,000 ML IV SCH (12:38)
[2020-10-02] MEDS: BACLOFEN 10 MG TAB PO PRN (15:31)
[2020-10-02 16:00] VITALS: BP 149/94
[2020-10-02 22:00] VITALS: BP 171/93
[2020-10-02] MEDS: ATORVASTATIN 20 MG TAB PO SCH (22:38)
[2020-10-03] MEDS: TEMAZEPAM 15 MG CAP PO PRN (00:04)
[2020-10-03] MEDS ORDERED: cloNIDine HCL 0.1 MG TAB PO ONE (00:30)
[2020-10-03 05:19] VITALS: BP 139/80
[2020-10-03 05:36] LABS: INR 1.17 (0.9-1.15)
[2020-10-03 05:44] LABS: Potassium 4.2 mmol/L (3.5-5.1)
[2020-10-03 05:47] LABS: BUN/Creatinine Ratio 21.1
[2020-10-03] MEDS: GABAPENTIN 300 MG CAP PO SCH ×3 (06:04→22:19)
[2020-10-03] MEDS: ACCU-CHEK COMFORT CURVE STRIP VI SCH ×4 (06:05→22:21)
[2020-10-03] MEDS: InsuLIN REG 1unit/0.01ml Soln (100units/ml) SC SCH ×4 (06:06→22:21)
[2020-10-03] MEDS: INSULIN LANTUS (GLARGINE) 1 /0.01ml (100units/ml) SC SCH ×2 (06:11→22:20)
[2020-10-03] MEDS: traMADol HCL 50 MG TAB PO PRN ×3 (06:39→20:00)
[2020-10-03 08:00] VITALS: BP 135/79
[2020-10-03] MEDS: VANCOMYCIN 1GM/250ML 250 ML IV SCH (08:51)
[2020-10-03] MEDS: FERROUS SULFATE 325mg EC TAB PO SCH (08:51)
[2020-10-03] MEDS: Glucerna Carbsteady SHAKE Vanilla 8oz PO SCH ×3 (08:52→17:25)
[2020-10-03] MEDS: cefTRIAXone 1GM/50ML D5W 50 ML IV SCH (08:52)
[2020-10-03] MEDS: ENOXAPARIN SOD 40 MG/0.4 ML SYRINGE SC SCH (09:17)
[2020-10-03] MEDS: CHOLECALCIFEROL (VITD3) 2,000 UNIT CAP/TAB PO SCH (09:20)
[2020-10-03] MEDS: ASPirin-EC 81 mg tab PO SCH (09:20)
[2020-10-03] MEDS: LABETALOL HCL 200 MG TAB PO SCH ×2 (09:20→22:19)
[2020-10-03] MEDS: DOCUSATE SOD 100 MG CAP PO SCH ×2 (09:21→22:18)
[2020-10-03] MEDS: LOSARTAN POTASSIUM 50 MG TAB PO SCH (09:21)
[2020-10-03] MEDS: CLOPIDOGREL BISULFATE 75 MG TAB PO SCH (09:22)
[2020-10-03] MEDS: FLUoxetine HCL 20 MG CAP PO SCH (09:22)
[2020-10-03 12:00] VITALS: BP 140/75
[2020-10-03] MEDS ORDERED: LIDOCAINE 1% (LOCAL ANESTH.) PF 5ml SDV ID ONE (13:45)
[2020-10-03 16:00] VITALS: BP 134/72
[2020-10-03] MEDS: BACLOFEN 10 MG TAB PO PRN (18:33)
[2020-10-03 22:00] VITALS: BP 120/65
[2020-10-03] MEDS: ATORVASTATIN 20 MG TAB PO SCH (22:18)
[2020-10-03] MEDS: SODIUM CHLOR 0.9% PF (SALINE LOCK) 10ML VIAL/SYR IV SCH (22:18)
[2020-10-04] MEDS: traMADol HCL 50 MG TAB PO PRN (03:55)
[2020-10-04 05:00] VITALS: BP 149/90
[2020-10-04] MEDS: GABAPENTIN 300 MG CAP PO SCH ×2 (06:12→14:00)
[2020-10-04] MEDS: INSULIN LANTUS (GLARGINE) 1 /0.01ml (100units/ml) SC SCH (06:33)
[2020-10-04] MEDS: ACCU-CHEK COMFORT CURVE STRIP VI SCH ×2 (06:33→11:45)
[2020-10-04] MEDS: InsuLIN REG 1unit/0.01ml Soln (100units/ml) SC SCH ×2 (06:34→12:00)
[2020-10-04] MEDS: FERROUS SULFATE 325mg EC TAB PO SCH (08:16)
[2020-10-04] MEDS: Glucerna Carbsteady SHAKE Vanilla 8oz PO SCH ×2 (08:16→12:00)
[2020-10-04 09:00] VITALS: BP 120/68
[2020-10-04] MEDS: ASPirin-EC 81 mg tab PO SCH (09:39)
[2020-10-04] MEDS: DOCUSATE SOD 100 MG CAP PO SCH (09:39)
[2020-10-04] MEDS: FLUoxetine HCL 20 MG CAP PO SCH (09:39)
[2020-10-04] MEDS: CLOPIDOGREL BISULFATE 75 MG TAB PO SCH (09:39)
[2020-10-04] MEDS: CHOLECALCIFEROL (VITD3) 2,000 UNIT CAP/TAB PO SCH (09:39)
[2020-10-04] MEDS: LOSARTAN POTASSIUM 50 MG TAB PO SCH (09:40)
[2020-10-04] MEDS: ENOXAPARIN SOD 40 MG/0.4 ML SYRINGE SC SCH (09:41)
[2020-10-04] MEDS: LABETALOL HCL 200 MG TAB PO SCH (09:44)
[2020-10-04] MEDS ORDERED: CEFTRIAXONE SODIUM 2 GM in D5W 5% 50 ML IV SCH (10:00)
[2020-10-04] MEDS: SODIUM CHLOR 0.9% PF (SALINE LOCK) 10ML VIAL/SYR IV SCH (10:41)
[2020-10-04 12:33] VITALS: BP 161/82
[2020-10-04 13:05] VITALS: BP 120/68
== END 2020-10-04 14:20 | DRG 504 ==
LOC: ER 09:02 → TELE 11:01 → TELE-WESTW 13:17 → WEST WING 10-02 15:33
PROVIDERS: ADMIT Internal Medicine; ATTEND Internal Medicine
PROC: 0QBN0ZZ Excision of Right Metatarsal, Open Approach (ICD-10-PCS; principal; 2020-09-30 13:36)
PROC: 05HY33Z Insertion of Infusion Device into Upper Vein, Percutaneous Approach (ICD-10-PCS; 2020-10-03)
DX: T87.53 Necrosis of amputation stump, right lower extremity (principal); M86.9 Osteomyelitis, unspecified; E11.69 Type 2 diabetes mellitus with other specified complication; E11.51 Type 2 diabetes mellitus with diabetic peripheral angiopathy without gangrene; D63.8 Anemia in other chronic diseases classified elsewhere; Z20.822 Contact with and (suspected) exposure to COVID-19; E78.5 Hyperlipidemia, unspecified; E88.09 Other disorders of plasma-protein metabolism, not elsewhere classified; E11.65 Type 2 diabetes mellitus with hyperglycemia; F12.90 Cannabis use, unspecified, uncomplicated; Y83.5 Amputation of limb(s) as the cause of abnormal reaction of the patient, or of later complication, without mention of misadventure at the time of the procedure; Z82.1 Family history of blindness and visual loss; Z83.3 Family history of diabetes mellitus; Z82.49 Family history of ischemic heart disease and other diseases of the circulatory system; Z89.411 Acquired absence of right great toe; Y92.89 Other specified places as the place of occurrence of the external cause; Z79.899 Other long term (current) drug therapy; Z79.891 Long term (current) use of opiate analgesic; Z79.82 Long term (current) use of aspirin; Z79.4 Long term (current) use of insulin; Z80.8 Family history of malignant neoplasm of other organs or systems; Z68.27 Body mass index [BMI] 27.0-27.9, adult; I10 Essential (primary) hypertension
CPT/HCPCS: 36415; 36569; 71045; 73700; 80048; 80053; 80202; 80307; 81001; 82565; 82962; 83605; 84443; 84484; 85025; 85610; 85730; 87040; 87070; 87075; 87077; 87081; 87186; 87205; 87426; 93005; 96361; 96365; 96368; G0378; J0690; J0696; J1815; J2250; J2704; J7060

== ENCOUNTER 2021-05-08 07:40 | Inpatient (IN) | payer MEDICARE ==
[~2021-05-08] VITALS: Ht 182.9 cm; Wt 86.0 kg
[~2021-05-08 07:40] MED LIST changes: +ACET-6 PO; +BACL10TA PO
[2021-05-08] MEDS ORDERED: cloNIDine HCL 0.1 MG TAB PO ONE (08:15)
[2021-05-08 09:21] LABS: Basophils # (auto) 0 10 ^3/uL (0-0.2); Basophils % (auto) 0.4 % (0.0-2.0); Eosinophils # (auto) 0.2 10 ^3/uL (0-0.8); Hematocrit 35.6 % (41.0-53.0); Hemoglobin 11.4 g/dL (13.5-17.5); Lymphocytes # (auto) 1.4 10 ^3/uL (0.4-5.4); Lymphocytes % (auto) 16.8 % (10.0-50.0); Mean Corpuscular Hemoglobin 29.5 pg (28.0-32.0); Mean Corpuscular Hgb Conc. 32.1 g/dL (32.0-36.0); Monocytes # (auto) 0.7 10 ^3/uL (0-1.3); Monocytes % (auto) 8.3 % (0.0-12.0); Neutrophils % (auto) 72.5 % (37.0-80.0); Nucleated Red Blood Cells % 0.3 %; Red Blood Cells 3.87 10^6/uL (4.5-5.90); Red Cell Distribution Width 13.5 % (11.8-14.3); White Blood Cell 8.3 10^3/uL (4.4-10.8)
[2021-05-08 10:00] LABS: Albumin 2.9 g/dL (3.4-5.0); Calcium 8.9 mg/dL (8.5-10.1); Potassium 5.5 mmol/L (3.5-5.1)
[2021-05-08 10:04] LABS: Bilirubin, Total 0.2 mg/dL (0.2-1.0); Total Protein 6.9 g/dL (6.4-8.2)
[2021-05-08] MEDS ORDERED: SODIUM BICARBONATE 8.4% INJ 50ML SYRINGE IV ONE (11:15)
[2021-05-08] MEDS ORDERED: CALCIUM GLUC 1,000mg/50ml-NS 50 ML IV ONE (11:15)
[2021-05-08] MEDS ORDERED: FUROSEMIDE 20 MG/2 ML VIAL IV ONE (11:15)
[2021-05-08] MEDS ORDERED: SODIUM ZIRCONIUM CYCL 10 GM PAK PO ONE (11:15)
[2021-05-08] MEDS ORDERED: DEXTROSE (50%) 50ML SYRG IV ONE (11:15)
[2021-05-08] MEDS ORDERED: ALBUTEROL SULF 2.5 MG/0.5ML(0.5%) NEB SOLN NEB ONE (11:15)
[2021-05-08] MEDS ORDERED: InsuLIN REG 1unit/0.01ml Soln (100units/ml) IV ONE (11:15)
[2021-05-08] MEDS ORDERED: NITROGLYCERIN 0.4 MG SL TAB SL PRN ×2 (13:30→15:30)
[2021-05-08] MEDS ORDERED: MORPHINE SULFATE INJECTION 2 MG/ML SYRG IV PRN ×3 (13:30→15:30)
[2021-05-08] MEDS ORDERED: MORPHINE SULFATE INJECTION 2 MG/ML SYRG IV ONE (14:00)
[2021-05-08] MEDS ORDERED: CEFTRIAXONE SODIUM 2 GM in D5W 5% 50 ML IV ONE (15:00)
[2021-05-08] MEDS ORDERED: CLINDAMYCIN 600MG IV 50 ML IV ONE (15:00)
[2021-05-08] MEDS ORDERED: LABETALOL HCL 5 MG/ML 4ML SYRINGE IV PRN (15:15)
[2021-05-08] MEDS ORDERED: NIFEdipine ER 30 MG TAB PO ONE (15:15)
[2021-05-08] MEDS ORDERED: DEXTROSE (50%) 50ML SYRG IV PRN (15:15)
[2021-05-08] MEDS ORDERED: hydrALAZINE HCL 20 MG/ML VL IV PRN (15:15)
[2021-05-08] MEDS ORDERED: ALUM & MAG HYDROX-SIMETH LIQ(MAALOX) 30 ML PO PRN (15:30)
[2021-05-08] MEDS ORDERED: TEMAZEPAM 15 MG CAP PO PRN (15:30)
[2021-05-08] MEDS ORDERED: HYDROcodone-ACET 5/325MG TAB PO PRN (15:30)
[2021-05-08] MEDS ORDERED: ACETAMINOPHEN 325 MG TAB PO PRN (15:30)
[2021-05-08] MEDS ORDERED: ONDANSETRON HCL 4 MG/2 ML VIAL IV PRN (15:30)
[2021-05-08] MEDS ORDERED: DOCUSATE SOD 100 MG CAP PO PRN (15:30)
[2021-05-08 17:01] LABS: Cholesterol 127 mg/dL (< 200); HDL Cholesterol 53 mg/dL (40-59); LDL Cholesterol 61 mg/dL (< 100); Triglycerides 95 mg/dL (< 150)
[2021-05-08] MEDS: ACCU-CHEK COMFORT CURVE STRIP VI SCH ×2 (17:18→23:45)
[2021-05-08] MEDS: SODIUM CHLORIDE 0.9% 1,000 ML IV SCH (17:19)
[2021-05-08] MEDS: InsuLIN REG 1unit/0.01ml Soln (100units/ml) SC SCH (17:22)
[2021-05-08 21:34] VITALS: BP 152/81
[2021-05-08] MEDS ORDERED: ATORVASTATIN 20 MG TAB PO SCH (22:00)
[2021-05-08] MEDS ORDERED: InsuLIN REG 1unit/0.01ml Soln (100units/ml) SC SCH (22:00)
[2021-05-08] MEDS: CLINDAMYCIN 600MG IV 50 ML IV SCH (23:44)
[2021-05-08] MEDS: CILOSTAZOL 100 MG TAB PO SCH (23:44)
[2021-05-09 05:00] VITALS: BP 143/79
[2021-05-09] MEDS: CLINDAMYCIN 600MG IV 50 ML IV SCH (05:34)
[2021-05-09] MEDS: InsuLIN REG 1unit/0.01ml Soln (100units/ml) SC SCH ×2 (06:53→13:43)
[2021-05-09 07:05] LABS: Basophils # (auto) 0 10 ^3/uL (0-0.2); Basophils % (auto) 0.5 % (0.0-2.0); Eosinophils # (auto) 0.2 10 ^3/uL (0-0.8); Eosinophils % (auto) 2.8 % (0.0-7.0); Hematocrit 31.9 % (41.0-53.0); Hemoglobin 10.6 g/dL (13.5-17.5); Lymphocytes # (auto) 1.4 10 ^3/uL (0.4-5.4); Lymphocytes % (auto) 21.4 % (10.0-50.0); Mean Corpuscular Hemoglobin 29.8 pg (28.0-32.0); Mean Corpuscular Hgb Conc. 33.1 g/dL (32.0-36.0); Monocytes # (auto) 0.7 10 ^3/uL (0-1.3); Monocytes % (auto) 9.8 % (0.0-12.0); Neutrophils # (auto) 4.3 10 ^3/uL (1.6-8.6); Neutrophils % (auto) 65.5 % (37.0-80.0); Nucleated Red Blood Cells % 0.1 %; Red Blood Cells 3.55 10^6/uL (4.5-5.90); Red Cell Distribution Width 13.4 % (11.8-14.3); White Blood Cell 6.6 10^3/uL (4.4-10.8)
[2021-05-09] MEDS: ACCU-CHEK COMFORT CURVE STRIP VI SCH ×2 (07:06→13:34)
[2021-05-09 07:18] LABS: INR 1.19 (0.9-1.15); Partial Thromboplastin Time 26.5 sec (23.6-33.0)
[2021-05-09 07:29] LABS: Potassium 4.4 mmol/L (3.5-5.1)
[2021-05-09 07:45] VITALS: BP 120/71
[2021-05-09] MEDS: SODIUM CHLORIDE 0.9% 1,000 ML IV SCH (08:10)
[2021-05-09] MEDS ORDERED: ROPIVACAINE 0.5% (5MG/ML) 20ML AMPULE IJ ONE (08:32)
[2021-05-09] MEDS ORDERED: ceFAZolin 1GM VL ONE (08:32)
[2021-05-09] MEDS ORDERED: LIDOCAINE 1% HCL (LOCAL ANESTH.) INJ 20ML MDV ONE (08:32)
[2021-05-09] MEDS ORDERED: ceFAZolin 1GM/50ML 100 ML IV ONE (08:42)
[2021-05-09 09:00] VITALS: BP 120/71
[2021-05-09] MEDS ORDERED: HYDROmorphone HCL 2 MG/ML VL IV PRN (09:00)
[2021-05-09] MEDS ORDERED: MIDAZOLAM HCL 2MG/2ML 2ml VIAL (1mg/ml) IV PRN (09:00)
[2021-05-09] MEDS ORDERED: LABETALOL HCL 5 MG/ML 4ML SYRINGE IV PRN (09:00)
[2021-05-09] MEDS ORDERED: MORPHINE SULFATE 4 MG/ML SYR/VIAL IV PRN (09:00)
[2021-05-09] MEDS ORDERED: ePHEDrine SULFATE 50 MG/ML AMP IV PRN (09:00)
[2021-05-09] MEDS ORDERED: hydrALAZINE HCL 20 MG/ML VL IV PRN (09:00)
[2021-05-09] MEDS ORDERED: ONDANSETRON HCL 4 MG/2 ML VIAL IV PRN (09:00)
[2021-05-09] MEDS ORDERED: MEPERIDINE HCL (25 MG/ML) 1ML VIAL ONE (09:01)
[2021-05-09] MEDS ORDERED: fentaNYL CITRATE 100 MCG/2 ML VL ONE (09:02)
[2021-05-09] MEDS ORDERED: MIDAZOLAM HCL 2MG/2ML 2ml VIAL (1mg/ml) ONE (09:02)
[2021-05-09] MEDS ORDERED: PROPOFOL 10 MG/ML 20 ML IV ONE (09:03)
[2021-05-09] MEDS ORDERED: DexAMETHasone SOD PHOS 10MG/1ML VIAL INJ ONE (09:03)
[2021-05-09 09:30] LABS: BUN/Creatinine Ratio 21.5; Calcium 8.8 mg/dL (8.5-10.1)
[2021-05-09 09:31] LABS: Albumin 2.6 g/dL (3.4-5.0); Bilirubin, Total 0.3 mg/dL (0.2-1.0); Total Protein 6.7 g/dL (6.4-8.2)
[2021-05-09] MEDS ORDERED: ASPirin 81 mg TAB PO SCH (10:00)
[2021-05-09] MEDS ORDERED: ENOXAPARIN SOD 40 MG/0.4 ML SYRINGE SC SCH (10:00)
[2021-05-09] MEDS ORDERED: NIFEdipine ER 30 MG TAB PO SCH (10:00)
[2021-05-09] MEDS ORDERED: CEFTRIAXONE SODIUM 2 GM in D5W 5% 50 ML IV SCH (10:00)
[2021-05-09] MEDS ORDERED: CLOPIDOGREL BISULFATE 75 MG TAB PO SCH (10:00)
[2021-05-09 10:10] VITALS: BP 115/61
[2021-05-09] MEDS: CILOSTAZOL 100 MG TAB PO SCH (13:19)
[2021-05-09 22:31] LABS: Uric Acid 4.6 mg/dL (3.5-7.2)
[2021-05-10 06:36] LABS: Phosphorus 3.7 mg/dL (2.5-4.90)
== END 2021-05-09 15:05 | disposition left against medical advice (07) | DRG 629 ==
LOC: ER 07:40 → OVERFLOW 13:19 → CENTRAL 21:00
PROVIDERS: ADMIT Hospitalist; ATTEND Family Medicine
PROC: 0QBL0ZZ Excision of Right Tarsal, Open Approach (ICD-10-PCS; principal; 2021-05-09 08:54)
DX: E11.69 Type 2 diabetes mellitus with other specified complication (principal); E44.0 Moderate protein-calorie malnutrition; M86.171 Other acute osteomyelitis, right ankle and foot; D64.9 Anemia, unspecified; E11.21 Type 2 diabetes mellitus with diabetic nephropathy; E11.40 Type 2 diabetes mellitus with diabetic neuropathy, unspecified; E11.621 Type 2 diabetes mellitus with foot ulcer; Z68.25 Body mass index [BMI] 25.0-25.9, adult; E78.5 Hyperlipidemia, unspecified; E87.5 Hyperkalemia; L97.519 Non-pressure chronic ulcer of other part of right foot with unspecified severity; I11.9 Hypertensive heart disease without heart failure; Z20.822 Contact with and (suspected) exposure to COVID-19; E11.51 Type 2 diabetes mellitus with diabetic peripheral angiopathy without gangrene; Z53.21 Procedure and treatment not carried out due to patient leaving prior to being seen by health care provider; F12.90 Cannabis use, unspecified, uncomplicated; F31.9 Bipolar disorder, unspecified; F41.9 Anxiety disorder, unspecified; I16.0 Hypertensive urgency; Z79.02 Long term (current) use of antithrombotics/antiplatelets; Z79.82 Long term (current) use of aspirin; Z79.899 Other long term (current) drug therapy; Z80.9 Family history of malignant neoplasm, unspecified; Z82.1 Family history of blindness and visual loss; Z82.49 Family history of ischemic heart disease and other diseases of the circulatory system; Z83.3 Family history of diabetes mellitus; Z89.421 Acquired absence of other right toe(s)
CPT/HCPCS: 36415; 71045; 73700; 80053; 80061; 82306; 82962; 83036; 83735; 83880; 84100; 84132; 84443; 84484; 84550; 85025; 85379; 85610; 85730; 87040; 87070; 87075; 87077; 87186; 87205; 87426; 94640; 96365; 96367; 96375; 96376; G0378; J0690; J0696; J1100; J1815; J2001; J2250; J2704; J3490; J7060

== ENCOUNTER 2022-12-05 09:28 | Inpatient (IN) | payer MEDICARE, MEDICAID ==
[~2022-12-05] VITALS: Ht 175.3 cm; Wt 92.7 kg
[~2022-12-05 09:28] MED LIST changes: -FERR-20 PO; +FERR325T24 PO; -LOSA-69 PO; +LOSA50TA46 PO; +SIMV10TA20 PO; -SIMV10TA84 PO
[2022-12-05 10:15] LABS: Basophils # (auto) 0 10 ^3/uL (0-0.2); Basophils % (auto) 0.6 % (0.0-2.0); Eosinophils # (auto) 0.3 10 ^3/uL (0-0.8); Hematocrit 46.9 % (41.0-53.0); Hemoglobin 15.9 g/dL (13.5-17.5); Lymphocytes # (auto) 1.2 10 ^3/uL (0.4-5.4); Lymphocytes % (auto) 16.4 % (10.0-50.0); Mean Corpuscular Hemoglobin 29.9 pg (28.0-32.0); Monocytes # (auto) 0.6 10 ^3/uL (0-1.3); Monocytes % (auto) 7.8 % (0.0-12.0); Neutrophils # (auto) 5.4 10 ^3/uL (1.6-8.6); Neutrophils % (auto) 71.2 % (37.0-80.0); Red Blood Cells 5.33 10^6/uL (4.5-5.90); White Blood Cell 7.5 10^3/uL (4.4-10.8)
[2022-12-05 10:29] LABS: INR 1.19 (0.9-1.15); Partial Thromboplastin Time 24.5 SEC (24.5-34.5); Prothrombin Time 12.4 sec (9.3-11.8)
[2022-12-05 10:35] LABS: Potassium 4.5 mmol/L (3.5-5.1)
[2022-12-05 10:41] LABS: Albumin 3.5 g/dL (3.4-5.0); BUN/Creatinine Ratio 27.4 (10.0-20.0); Bilirubin, Total 0.5 mg/dL (0.2-1.0); Total Protein 7.5 g/dL (6.4-8.2)
[2022-12-05 10:48] LABS: Calcium 13.8 mg/dL (8.5-10.1)
[2022-12-05] MEDS ORDERED: AZITHROMYCIN 500MG/ 250ML 250 ML IV ONE (11:00)
[2022-12-05] MEDS ORDERED: cefTRIAXone 1GM/50ML D5W 50 ML IV ONE (11:00)
[2022-12-05 11:39] LABS: Urine Bacteria NONE SEEN /hpf (None Seen); Urine Blood Negative /uL (Negative); Urine Clarity Clear (Clear); Urine Color Yellow (Yellow); Urine Hyaline Cast MOD /lpf (0 - 2); Urine Protein, UAD Negative (Negative); Urine Specific Gravity 1.014 (1.001-1.035); Urine Urobilinogen Normal (Negative); Urine WBC 1 /hpf (0 - 3); Urine pH 5.5 (5.0-8.0)
[2022-12-05] MEDS ORDERED: ENOXAPARIN SOD 40 MG/0.4 ML SYRINGE SC SCH (14:30)
[2022-12-05] MEDS ORDERED: ONDANSETRON HCL 4 MG/2 ML VIAL IV PRN (14:30)
[2022-12-05] MEDS ORDERED: DEXTROSE (50%) 50ML SYRG IV PRN (14:30)
[2022-12-05] MEDS ORDERED: ALBUTEROL SULF 2.5 MG/0.5ML(0.5%) NEB SOLN NEB PRN (14:45)
[2022-12-05] MEDS ORDERED: IPRATROPIUM BROM 0.5 MG/2.5ML INH SOL NEB PRN (14:45)
[2022-12-05] MEDS ORDERED: SODIUM CHLORIDE 0.9% 1,000 ML IV ONE ×2 (14:45→17:15)
[2022-12-05] MEDS: SODIUM CHLORIDE 0.9% 1,000 ML IV SCH ×3 (14:47→22:34)
[2022-12-05 15:17] LABS: Magnesium 1.5 mg/dL (1.6-2.6); Phosphorus 4.4 mg/dL (2.5-4.90)
[2022-12-05 16:15] VITALS: BP 77/50; PULSE 76; RESP 18; TEMP 98; O2SAT 99
[2022-12-05 16:15] LABS: Creatinine, Urine 64 mg/dL (30.0-125.0); Sodium Urine 73 mmol/L (40-220)
[2022-12-05] MEDS: ACCU-CHEK COMFORT CURVE STRIP VI SCH ×2 (17:00→22:10)
[2022-12-05 17:14] VITALS: PULSE 78; RESP 16; O2SAT 95
[2022-12-05] MEDS: InsuLIN REG 1unit/0.01ml Soln (100units/ml) SC SCH ×2 (17:48→22:26)
[2022-12-05 19:30] VITALS: PULSE 88; RESP 24; O2SAT 98
[2022-12-05] MEDS: ENOXAPARIN SOD 100 MG/1 ML SYRINGE SC SCH (22:24)
[2022-12-05] MEDS: ATORVASTATIN 20 MG TAB PO SCH (22:24)
[2022-12-06] VITALS (9 sets, daily range): BP systolic 135–152; BP diastolic 85–94; PULSE 78–86; RESP 14–20; TEMP 97.9; O2SAT 94–99
[2022-12-06] MEDS: SODIUM CHLORIDE 0.9% 1,000 ML IV SCH ×5 (03:08→19:40)
[2022-12-06 06:28] LABS: Basophils # (auto) 0 10 ^3/uL (0-0.2); Basophils % (auto) 0.4 % (0.0-2.0); Eosinophils # (auto) 0.2 10 ^3/uL (0-0.8); Eosinophils % (auto) 2.7 % (0.0-7.0); Hematocrit 40.6 % (41.0-53.0); Hemoglobin 13.6 g/dL (13.5-17.5); Lymphocytes # (auto) 1.2 10 ^3/uL (0.4-5.4); Lymphocytes % (auto) 14.7 % (10.0-50.0); Mean Corpuscular Hemoglobin 29.6 pg (28.0-32.0); Mean Corpuscular Hgb Conc. 33.5 g/dL (32.0-36.0); Mean Corpuscular Volume 88.3 fL (80.0-100.0); Monocytes # (auto) 0.6 10 ^3/uL (0-1.3); Monocytes % (auto) 7.9 % (0.0-12.0); Neutrophils # (auto) 5.9 10 ^3/uL (1.6-8.6); Neutrophils % (auto) 74.3 % (37.0-80.0); Nucleated Red Blood Cells % 0.3 %; Red Blood Cells 4.59 10^6/uL (4.5-5.90); White Blood Cell 7.9 10^3/uL (4.4-10.8)
[2022-12-06 06:38] LABS: Potassium 4.1 mmol/L (3.5-5.1)
[2022-12-06 06:46] LABS: Albumin 2.9 g/dL (3.4-5.0); BUN/Creatinine Ratio 27.3 (10.0-20.0); Bilirubin, Total 0.2 mg/dL (0.2-1.0); Calcium 11.7 mg/dL (8.5-10.1)
[2022-12-06] MEDS: ACCU-CHEK COMFORT CURVE STRIP VI SCH ×4 (06:56→22:31)
[2022-12-06] MEDS: InsuLIN REG 1unit/0.01ml Soln (100units/ml) SC SCH ×4 (07:13→22:21)
[2022-12-06] MEDS: cefTRIAXone 1GM/50ML D5W 50 ML IV SCH (09:20)
[2022-12-06] MEDS: AZITHROMYCIN 500MG/ 250ML 250 ML IV SCH (10:04)
[2022-12-06] MEDS: ENOXAPARIN SOD 100 MG/1 ML SYRINGE SC SCH ×2 (10:04→22:22)
[2022-12-06] MEDS ORDERED: CARV12.544 PO (15:57)
[2022-12-06] MEDS ORDERED: NIFE1TAB31 PO (15:57)
[2022-12-06] MEDS ORDERED: LISI20TA56 PO (15:57)
[2022-12-06] MEDS ORDERED: TRAZ-181 PO (15:57)
[2022-12-06] MEDS ORDERED: METF-370 PO (15:57)
[2022-12-06] MEDS ORDERED: LOSA100T58 PO (15:57)
[2022-12-06] MEDS ORDERED: LOSARTAN POTASSIUM 50 MG TAB PO ONE (16:15)
[2022-12-06] MEDS ORDERED: NIFEdipine ER 30 MG TAB PO ONE (16:15)
[2022-12-06] MEDS: FUROSEMIDE 40 MG/4 ML VIAL IV SCH (17:14)
[2022-12-06 17:26] LABS: Urine Bacteria NONE SEEN /hpf (None Seen); Urine Blood Negative /uL (Negative); Urine Clarity Clear (Clear); Urine Color STRAW (Yellow); Urine Hyaline Cast FEW /lpf (0 - 2); Urine Protein, UAD Negative (Negative); Urine Urobilinogen Normal (Negative); Urine WBC <1 /hpf (0 - 3); Urine pH 5.5 (5.0-8.0)
[2022-12-06 17:31] LABS: Protein, Urine 18.8 mg/dL (0.0-11.9); Urine Protein/Creatinine Ratio 0.65
[2022-12-06] MEDS: ATORVASTATIN 20 MG TAB PO SCH (22:22)
[2022-12-07] VITALS (9 sets, daily range): BP systolic 116–144; BP diastolic 75–98; PULSE 66–94; RESP 16–20; TEMP 97.5–97.9; O2SAT 94–98
[2022-12-07] MEDS: SODIUM CHLORIDE 0.9% 1,000 ML IV SCH ×4 (01:13→22:40)
[2022-12-07] MEDS: FUROSEMIDE 40 MG/4 ML VIAL IV SCH ×2 (06:00→06:34)
[2022-12-07 06:11] LABS: Calcium 11.1 mg/dL (8.5-10.1); Potassium 3.7 mmol/L (3.5-5.1)
[2022-12-07 06:14] LABS: BUN/Creatinine Ratio 24.8 (10.0-20.0)
[2022-12-07] MEDS: InsuLIN REG 1unit/0.01ml Soln (100units/ml) SC SCH ×4 (06:21→22:49)
[2022-12-07] MEDS: ACCU-CHEK COMFORT CURVE STRIP VI SCH ×4 (06:37→22:40)
[2022-12-07 09:00] LABS: Basophils # (auto) 0.1 10 ^3/uL (0-0.2); Eosinophils # (auto) 0.4 10 ^3/uL (0-0.8); Eosinophils % (auto) 5.4 % (0.0-7.0); Lymphocytes # (auto) 1.7 10 ^3/uL (0.4-5.4); Mean Corpuscular Hemoglobin 29.6 pg (28.0-32.0); Monocytes # (auto) 0.7 10 ^3/uL (0-1.3); Neutrophils # (auto) 4.8 10 ^3/uL (1.6-8.6); Neutrophils % (auto) 62.6 % (37.0-80.0); Nucleated Red Blood Cells % 0.1 %; Red Blood Cells 5.06 10^6/uL (4.5-5.90); Red Cell Distribution Width 13.1 % (11.8-14.3); White Blood Cell 7.7 10^3/uL (4.4-10.8)
[2022-12-07] MEDS: CLOPIDOGREL BISULFATE 75 MG TAB PO SCH (09:06)
[2022-12-07] MEDS: AZITHROMYCIN 500MG/ 250ML 250 ML IV SCH (09:06)
[2022-12-07] MEDS: cefTRIAXone 1GM/50ML D5W 50 ML IV SCH (09:06)
[2022-12-07] MEDS: NIFEdipine ER 30 MG TAB PO SCH (09:07)
[2022-12-07] MEDS: LOSARTAN POTASSIUM 50 MG TAB PO SCH (09:08)
[2022-12-07] MEDS: ENOXAPARIN SOD 100 MG/1 ML SYRINGE SC SCH ×2 (09:08→22:39)
[2022-12-07] MEDS ORDERED: ZOLEDRONIC ACID 4 MG in SODIUM CHL 0.9% 100 ML IV ONE (09:15)
[2022-12-07] MEDS: ACETAMINOPHEN 325 MG TAB PO PRN ×2 (11:53→22:39)
[2022-12-07] MEDS: MORPHINE SULFATE INJ 2 MG/ml SYRG IV PRN (13:03)
[2022-12-07] MEDS ORDERED: FUROSEMIDE 40 MG/4 ML VIAL IV ONE (17:30)
[2022-12-07] MEDS: ATORVASTATIN 20 MG TAB PO SCH (22:38)
[2022-12-07] MEDS: DOCUSATE SOD 100 MG CAP PO PRN (22:38)
[2022-12-08] VITALS (11 sets, daily range): BP systolic 114–147; BP diastolic 78–90; PULSE 0–91; RESP 16–21; TEMP 97.4–97.9; O2SAT 94–100
[2022-12-08 05:58] LABS: Basophils # (auto) 0.1 10 ^3/uL (0-0.2); Basophils % (auto) 0.9 % (0.0-2.0); Eosinophils # (auto) 0.4 10 ^3/uL (0-0.8); Hematocrit 39.9 % (41.0-53.0); Hemoglobin 13.6 g/dL (13.5-17.5); Lymphocytes # (auto) 1.7 10 ^3/uL (0.4-5.4); Lymphocytes % (auto) 25.3 % (10.0-50.0); Mean Corpuscular Hemoglobin 29.6 pg (28.0-32.0); Mean Corpuscular Volume 87.1 fL (80.0-100.0); Monocytes # (auto) 0.8 10 ^3/uL (0-1.3); Monocytes % (auto) 11.9 % (0.0-12.0); Neutrophils # (auto) 3.7 10 ^3/uL (1.6-8.6); Neutrophils % (auto) 55.9 % (37.0-80.0); Nucleated Red Blood Cells % 0.1 %; Red Blood Cells 4.58 10^6/uL (4.5-5.90); Red Cell Distribution Width 12.9 % (11.8-14.3); White Blood Cell 6.6 10^3/uL (4.4-10.8)
[2022-12-08] MEDS: ACCU-CHEK COMFORT CURVE STRIP VI SCH ×4 (06:30→23:31)
[2022-12-08] MEDS: SODIUM CHLORIDE 0.9% 1,000 ML IV SCH ×3 (06:31→18:38)
[2022-12-08 06:34] LABS: Albumin 3.2 g/dL (3.4-5.0); Calcium 10.6 mg/dL (8.5-10.1); Potassium 4.1 mmol/L (3.5-5.1)
[2022-12-08] MEDS: InsuLIN REG 1unit/0.01ml Soln (100units/ml) SC SCH ×4 (06:37→23:33)
[2022-12-08 06:38] LABS: BUN/Creatinine Ratio 23.6 (10.0-20.0); Bilirubin, Total 0.4 mg/dL (0.2-1.0); Total Protein 6.2 g/dL (6.4-8.2)
[2022-12-08] MEDS: FUROSEMIDE 40 MG/4 ML VIAL IV SCH ×2 (06:38→18:00)
[2022-12-08] MEDS: cefTRIAXone 1GM/50ML D5W 50 ML IV SCH (08:08)
[2022-12-08] MEDS: ACETAMINOPHEN 325 MG TAB PO PRN ×2 (08:09→15:04)
[2022-12-08] MEDS: LOSARTAN POTASSIUM 50 MG TAB PO SCH (09:07)
[2022-12-08] MEDS: AZITHROMYCIN 500MG/ 250ML 250 ML IV SCH (09:07)
[2022-12-08] MEDS: CLOPIDOGREL BISULFATE 75 MG TAB PO SCH (09:07)
[2022-12-08] MEDS: NIFEdipine ER 30 MG TAB PO SCH (09:08)
[2022-12-08] MEDS: ENOXAPARIN SOD 100 MG/1 ML SYRINGE SC SCH ×2 (09:09→23:31)
[2022-12-08] MEDS: MORPHINE SULFATE INJ 2 MG/ml SYRG IV PRN (20:19)
[2022-12-08] MEDS: MELATONIN 5 MG TAB PO SCH (23:31)
[2022-12-08] MEDS: ATORVASTATIN 20 MG TAB PO SCH (23:31)
[2022-12-09] VITALS (9 sets, daily range): BP systolic 103–146; BP diastolic 66–98; PULSE 65–102; RESP 16–22; TEMP 97.5–98.5; O2SAT 95–98
[2022-12-09] MEDS: SODIUM CHLORIDE 0.9% 1,000 ML IV SCH ×5 (01:02→18:06)
[2022-12-09] MEDS: FUROSEMIDE 40 MG/4 ML VIAL IV SCH (06:34)
[2022-12-09] MEDS: InsuLIN REG 1unit/0.01ml Soln (100units/ml) SC SCH ×4 (06:35→22:19)
[2022-12-09] MEDS: ACCU-CHEK COMFORT CURVE STRIP VI SCH ×4 (06:36→22:22)
[2022-12-09 07:11] LABS: Basophils # (auto) 0.1 10 ^3/uL (0-0.2); Basophils % (auto) 0.8 % (0.0-2.0); Eosinophils # (auto) 0.4 10 ^3/uL (0-0.8); Eosinophils % (auto) 4.6 % (0.0-7.0); Hematocrit 42.3 % (41.0-53.0); Hemoglobin 14.2 g/dL (13.5-17.5); Lymphocytes # (auto) 1.3 10 ^3/uL (0.4-5.4); Lymphocytes % (auto) 15.7 % (10.0-50.0); Mean Corpuscular Hemoglobin 29.5 pg (28.0-32.0); Mean Corpuscular Hgb Conc. 33.6 g/dL (32.0-36.0); Mean Corpuscular Volume 87.7 fL (80.0-100.0); Monocytes # (auto) 0.7 10 ^3/uL (0-1.3); Monocytes % (auto) 8.6 % (0.0-12.0); Neutrophils # (auto) 5.7 10 ^3/uL (1.6-8.6); Neutrophils % (auto) 70.3 % (37.0-80.0); Nucleated Red Blood Cells % 0.1 %; Red Blood Cells 4.83 10^6/uL (4.5-5.90); Red Cell Distribution Width 13.1 % (11.8-14.3); White Blood Cell 8.1 10^3/uL (4.4-10.8)
[2022-12-09 07:19] LABS: Potassium 3.8 mmol/L (3.5-5.1)
[2022-12-09 07:23] LABS: Albumin 3.2 g/dL (3.4-5.0); BUN/Creatinine Ratio 22.9 (10.0-20.0); Calcium 10.1 mg/dL (8.5-10.1)
[2022-12-09 07:26] LABS: Bilirubin, Total 0.4 mg/dL (0.2-1.0); Total Protein 6.5 g/dL (6.4-8.2)
[2022-12-09] MEDS: cefTRIAXone 1GM/50ML D5W 50 ML IV SCH (08:31)
[2022-12-09] MEDS: CLOPIDOGREL BISULFATE 75 MG TAB PO SCH (09:44)
[2022-12-09] MEDS: NIFEdipine ER 30 MG TAB PO SCH (09:45)
[2022-12-09] MEDS: LOSARTAN POTASSIUM 50 MG TAB PO SCH (09:45)
[2022-12-09] MEDS: ENOXAPARIN SOD 100 MG/1 ML SYRINGE SC SCH (09:45)
[2022-12-09] MEDS: AZITHROMYCIN 500MG/ 250ML 250 ML IV SCH (09:46)
[2022-12-09] MEDS: MORPHINE SULFATE INJ 2 MG/ml SYRG IV PRN ×2 (12:16→20:50)
[2022-12-09] MEDS: DOCUSATE SOD 100 MG CAP PO PRN (20:47)
[2022-12-09] MEDS: ATORVASTATIN 20 MG TAB PO SCH (22:18)
[2022-12-09] MEDS: MELATONIN 5 MG TAB PO SCH (22:20)
[2022-12-10] MEDS: SODIUM CHLORIDE 0.9% 1,000 ML IV SCH ×2 (02:28→11:06)
[2022-12-10 05:00] VITALS: BP 135/93; PULSE 74; RESP 18; TEMP 97.7; O2SAT 96
[2022-12-10 06:24] LABS: Potassium 3.8 mmol/L (3.5-5.1)
[2022-12-10 06:31] LABS: Albumin 3.1 g/dL (3.4-5.0); BUN/Creatinine Ratio 25.9 (10.0-20.0); Basophils # (auto) 0 10 ^3/uL (0-0.2); Basophils % (auto) 0.8 % (0.0-2.0); Calcium 9.2 mg/dL (8.5-10.1); Eosinophils # (auto) 0.4 10 ^3/uL (0-0.8); Hematocrit 39.7 % (41.0-53.0); Hemoglobin 13.4 g/dL (13.5-17.5); Lymphocytes # (auto) 1.2 10 ^3/uL (0.4-5.4); Lymphocytes % (auto) 19.1 % (10.0-50.0); Mean Corpuscular Hemoglobin 29.8 pg (28.0-32.0); Mean Corpuscular Hgb Conc. 33.8 g/dL (32.0-36.0); Mean Corpuscular Volume 88.1 fL (80.0-100.0); Monocytes # (auto) 0.7 10 ^3/uL (0-1.3); Monocytes % (auto) 11.4 % (0.0-12.0); Neutrophils # (auto) 3.9 10 ^3/uL (1.6-8.6); Neutrophils % (auto) 62.7 % (37.0-80.0); Nucleated Red Blood Cells % 0.2 %; Red Blood Cells 4.51 10^6/uL (4.5-5.90); Red Cell Distribution Width 13.1 % (11.8-14.3); White Blood Cell 6.1 10^3/uL (4.4-10.8)
[2022-12-10 06:34] LABS: Bilirubin, Total 0.4 mg/dL (0.2-1.0); Phosphorus 3.3 mg/dL (2.5-4.90); Total Protein 6.4 g/dL (6.4-8.2)
[2022-12-10] MEDS: ACCU-CHEK COMFORT CURVE STRIP VI SCH ×2 (06:49→11:06)
[2022-12-10] MEDS: MORPHINE SULFATE INJ 2 MG/ml SYRG IV PRN (06:53)
[2022-12-10] MEDS: InsuLIN REG 1unit/0.01ml Soln (100units/ml) SC SCH ×2 (06:58→13:24)
[2022-12-10 07:51] VITALS: PULSE 84
[2022-12-10 08:02] VITALS: BP 117/69; PULSE 85; RESP 19; TEMP 98.3; O2SAT 96
[2022-12-10] MEDS: cefTRIAXone 1GM/50ML D5W 50 ML IV SCH (08:02)
[2022-12-10 09:00] VITALS: BP 117/69; PULSE 85; RESP 19; TEMP 98.3; O2SAT 96
[2022-12-10] MEDS: NIFEdipine ER 30 MG TAB PO SCH (09:03)
[2022-12-10] MEDS: LOSARTAN POTASSIUM 50 MG TAB PO SCH (09:03)
[2022-12-10] MEDS: CLOPIDOGREL BISULFATE 75 MG TAB PO SCH (09:03)
[2022-12-10] MEDS ORDERED: AZITHROMYCIN 250 MG TAB PO SCH (10:00)
[2022-12-10] MEDS ORDERED: FUROSEMIDE 40 MG/4 ML VIAL IV SCH (10:00)
[2022-12-10] MEDS ORDERED: SODIUM CHLORIDE 0.9% 1,000 ML IV SCH (11:15)
[2022-12-10] MEDS ORDERED: DOXY1CAP57 PO (11:44)
[2022-12-10 13:42] VITALS: BP 135/91; PULSE 83; RESP 19; TEMP 98.1; O2SAT 94
[2022-12-13 12:07] LABS: Alpha-1-Globulin 0.2 g/dL (0.0-0.4); Alpha-2-Globulin 0.9 g/dL (0.4-1.0); Gamma Globulin 0.8 g/dL (0.4-1.8); Globulin Total 2.9 g/dL (2.2-3.9); Protein Total Serum 5.9 g/dL (6.0-8.5)
== END 2022-12-10 16:00 | disposition home or self-care (01) | DRG 682 ==
LOC: ER 09:28 → TELE 14:33 → TELE-E-ADS 12-06 14:34 → TELE-EAST 12-06 15:58
PROVIDERS: ADMIT Family Medicine; ATTEND Internal Medicine Geriatric Medicine
DX: N17.0 Acute kidney failure with tubular necrosis (principal); J15.9 Unspecified bacterial pneumonia; J96.01 Acute respiratory failure with hypoxia; E87.1 Hypo-osmolality and hyponatremia; J44.1 Chronic obstructive pulmonary disease with (acute) exacerbation; M86.171 Other acute osteomyelitis, right ankle and foot; E44.1 Mild protein-calorie malnutrition; J44.0 Chronic obstructive pulmonary disease with (acute) lower respiratory infection; E83.52 Hypercalcemia; E11.65 Type 2 diabetes mellitus with hyperglycemia; N18.2 Chronic kidney disease, stage 2 (mild); I65.23 Occlusion and stenosis of bilateral carotid arteries; E78.00 Pure hypercholesterolemia, unspecified; D64.9 Anemia, unspecified; F41.9 Anxiety disorder, unspecified; F31.9 Bipolar disorder, unspecified; E86.9 Volume depletion, unspecified; E88.09 Other disorders of plasma-protein metabolism, not elsewhere classified; E11.40 Type 2 diabetes mellitus with diabetic neuropathy, unspecified; E05.90 Thyrotoxicosis, unspecified without thyrotoxic crisis or storm; R55 Syncope and collapse; I12.9 Hypertensive chronic kidney disease with stage 1 through stage 4 chronic kidney disease, or unspecified chronic kidney disease; E11.22 Type 2 diabetes mellitus with diabetic chronic kidney disease; Z80.9 Family history of malignant neoplasm, unspecified; Z83.3 Family history of diabetes mellitus; Z82.49 Family history of ischemic heart disease and other diseases of the circulatory system; Z82.1 Family history of blindness and visual loss; Z79.899 Other long term (current) drug therapy; Z89.421 Acquired absence of other right toe(s); Z68.30 Body mass index [BMI] 30.0-30.9, adult
CPT/HCPCS: 36415; 70450; 71045; 78306; 78582; 80048; 80053; 80320; 81001; 82306; 82570; 82607; 82962; 83036; 83735; 83880; 83970; 84100; 84155; 84156; 84165; 84300; 84484; 85025; 85379; 85610; 85730; 93005; 93306; 93886; 94640; 96365; 96368; 96372; 97110; 97116; 97163; 97530; 99291; G0378; J0696; J1815; J3489

== ENCOUNTER → 2023-01-13 | Outpatient (CLI) | payer MEDICARE, MEDICAID ==
[~2023-01-13] VITALS: Ht 180.3 cm; Wt 93.0 kg
[~2023-01-13] MED LIST changes: +ADENOSINE 78 MG in GIVE UN-DILUTED 0 ML IV ONE; +ADENOSINE 90 MG/30 ML INJ IV ONE; +ALBU108A5 IN; +CARV12.544 PO; +DOXY1CAP57 PO; +INSLANTI SC; -LABE100T4 PO; +LOSA100T58 PO; -LOSA50TA46 PO; +NIFE1TAB31 PO; +TRAZ-181 PO
== END | disposition home or self-care (01) ==
LOC: Rad HDHVI 08:07
PROVIDERS: ATTEND Internal Medicine Cardiovascular Disease
DX: I11.0 Hypertensive heart disease with heart failure (principal); I50.33 Acute on chronic diastolic (congestive) heart failure; I48.19 Other persistent atrial fibrillation; E11.65 Type 2 diabetes mellitus with hyperglycemia; J96.01 Acute respiratory failure with hypoxia; R07.89 Other chest pain; I65.21 Occlusion and stenosis of right carotid artery; E78.5 Hyperlipidemia, unspecified; J44.9 Chronic obstructive pulmonary disease, unspecified; Z79.899 Other long term (current) drug therapy; Z79.84 Long term (current) use of oral hypoglycemic drugs
CPT/HCPCS: 78452; 93005; 96374; 96375; A9500; J0153

== ENCOUNTER 2023-01-23 07:29 | Inpatient (IN) | payer MEDICARE, MEDICAID ==
[2023-01-20 14:06] LABS: Basophils # (auto) 0.1 10 ^3/uL (0-0.2); Basophils % (auto) 0.9 % (0.0-2.0); Eosinophils # (auto) 0.3 10 ^3/uL (0-0.8); Eosinophils % (auto) 3.9 % (0.0-7.0); Hematocrit 39.1 % (41.0-53.0); Hemoglobin 13.2 g/dL (13.5-17.5); Lymphocytes # (auto) 1.4 10 ^3/uL (0.4-5.4); Lymphocytes % (auto) 18.9 % (10.0-50.0); Mean Corpuscular Hemoglobin 30.2 pg (28.0-32.0); Mean Corpuscular Hgb Conc. 33.6 g/dL (32.0-36.0); Mean Corpuscular Volume 89.9 fL (80.0-100.0); Monocytes # (auto) 0.5 10 ^3/uL (0-1.3); Monocytes % (auto) 6.7 % (0.0-12.0); Neutrophils # (auto) 5.4 10 ^3/uL (1.6-8.6); Neutrophils % (auto) 69.6 % (37.0-80.0); Nucleated Red Blood Cells % 0.1 %; Red Blood Cells 4.35 10^6/uL (4.5-5.90); Red Cell Distribution Width 14.3 % (11.8-14.3); White Blood Cell 7.7 10^3/uL (4.4-10.8)
[2023-01-20 14:18] LABS: Chloride 108 mmol/L (98-107); INR 1.17 (0.9-1.15); Partial Thromboplastin Time 25.2 SEC (24.5-34.5); Potassium 4.4 mmol/L (3.5-5.1); Prothrombin Time 12.2 sec (9.3-11.8); Sodium 139 mmol/L (136-145)
[2023-01-20 14:19] LABS: Anion Gap 4 (5-15); Calcium 10.8 mg/dL (8.7-10.4); Carbon Dioxide 27 mmol/L (20-30)
[2023-01-20 14:24] LABS: BUN/Creatinine Ratio 24.1 (10.0-20.0); Blood Urea Nitrogen 33 mg/dL (9-23); Glucose 219 mg/dL (74-106)
[2023-01-23] VITALS (10 sets, daily range): BP systolic 112–147; BP diastolic 82–96; PULSE 72–93; RESP 14–22; TEMP 98–98.5; O2SAT 94–99
[~2023-01-23] VITALS: Ht 177.8 cm; Wt 93.8 kg
[~2023-01-23 07:29] MED LIST changes: -ADENOSINE 78 MG in GIVE UN-DILUTED 0 ML IV ONE; -ADENOSINE 90 MG/30 ML INJ IV ONE; -DOCU-94 PO; -DOXY1CAP57 PO; -INSU1INJ19 SC
[2023-01-23] MEDS ORDERED: LIDOCAINE 2%HCL (LOCAL ANESTH.) INJ 20ML MDV ONE (10:16)
[2023-01-23] MEDS ORDERED: IOHEXOL 350 MG/ML 100ML IJ ONE ×2 (10:20→10:40)
[2023-01-23] MEDS ORDERED: GLYCOPYRROLATE 0.2 MG/ML 1ML VIAL ONE ×2 (10:21→10:38)
[2023-01-23] MEDS ORDERED: ANGIOMAX 250 MG VIAL IV ONE (10:22)
[2023-01-23] MEDS ORDERED: SODIUM CHL 0.9% 50 ML ONE (10:22)
[2023-01-23] MEDS ORDERED: CLOPIDOGREL 300 MG TAB ONE (10:47)
[2023-01-23] MEDS ORDERED: DEXTROSE (50%) 50ML SYRG IV PRN (13:45)
[2023-01-23] MEDS ORDERED: ALBUTEROL SULF 2.5 MG/0.5ML(0.5%) NEB SOLN NEB PRN (16:15)
[2023-01-23] MEDS: ACCU-CHEK COMFORT CURVE STRIP VI SCH ×2 (17:33→22:17)
[2023-01-23] MEDS: InsuLIN REG 1unit/0.01ml Soln (100units/ml) SC SCH ×2 (17:34→22:20)
[2023-01-23] MEDS ORDERED: ALBUTEROL MEDNEB 2.5 mg/3ml NEB NEB PRN (18:00)
[2023-01-23] MEDS: CARVEDILOL 12.5 MG TAB PO SCH (22:17)
[2023-01-24] VITALS (7 sets, daily range): BP systolic 117–143; BP diastolic 66–78; PULSE 77–81; RESP 17–19; TEMP 36.7; O2SAT 95–97
[2023-01-24] MEDS ORDERED: HYDROcodone-ACET 10/325MG TAB PO PRN (05:45)
[2023-01-24] MEDS: ACCU-CHEK COMFORT CURVE STRIP VI SCH ×2 (06:20→11:05)
[2023-01-24] MEDS: InsuLIN REG 1unit/0.01ml Soln (100units/ml) SC SCH ×2 (06:22→11:26)
[2023-01-24] MEDS ORDERED: LOSARTAN POTASSIUM 50 MG TAB PO SCH (10:00)
[2023-01-24] MEDS ORDERED: ASPirin 81 mg TAB PO SCH (10:00)
[2023-01-24] MEDS ORDERED: INSULIN LANTUS (GLARGINE) 1 /0.01ml (100units/ml) SC SCH (10:00)
[2023-01-24] MEDS ORDERED: NIFEdipine ER 30 MG TAB PO SCH (10:00)
[2023-01-24] MEDS ORDERED: CLOPIDOGREL BISULFATE 75 MG TAB PO SCH (10:00)
[2023-01-24] MEDS: CARVEDILOL 12.5 MG TAB PO SCH (10:27)
== END 2023-01-24 15:14 | disposition home or self-care (01) | DRG 36 ==
LOC: CATH 07:29 → TELE 11:15 → TELE-CENTR 12:14
PROVIDERS: ADMIT Internal Medicine Cardiovascular Disease; ATTEND Internal Medicine Cardiovascular Disease
PROC: 037K3DZ Dilation of Right Internal Carotid Artery with Intraluminal Device, Percutaneous Approach (ICD-10-PCS; principal; 2023-01-23)
PROC: B3181ZZ Fluoroscopy of Bilateral Internal Carotid Arteries using Low Osmolar Contrast (ICD-10-PCS; 2023-01-23)
DX: I65.21 Occlusion and stenosis of right carotid artery (principal); E11.40 Type 2 diabetes mellitus with diabetic neuropathy, unspecified; I48.91 Unspecified atrial fibrillation; I10 Essential (primary) hypertension; E11.59 Type 2 diabetes mellitus with other circulatory complications
CPT/HCPCS: 36415; 80048; 82962; 85025; 85610; 85730; 93005; 94640; 99152; G0378; G0463; J1815